=== PATIENT | male | born 1960 | race Caucasian/White ===

== ENCOUNTER 2019-05-13 17:05 | Emergency (ER) | payer BC, SELFPAY ==
[2019-05-13 17:22] VITALS: BP 124/82; PULSE 88; RESP 16; TEMP 37.1; O2SAT 95
--- NOTE | 2019-05-13 17:39 | ED.GENADUL_ITS ---
Discharge Plan Disposition Patient Disposition: HOME Condition: Good Discharge Details Chief Complaint: Vascular Clinical Impression: Left leg swelling Primary Care Provider: Pankaj Ortiz ED Provider: Adonis Nicole Home Meds and New Rx's Prescriptions: No Action cyclobenzaprine 5 MG tablet 5 - 10 mg PO TID PRNQty: 60 RF: 0 simvastatin 10 mg tablet 10 mg PO HS Qty: 90 RF: 4 Discharge Instructions Instructions: Leg Edema (ED) Additional Instructions: There is concern that you may have a blood clot. After we discussed the risks and benefits you decided to hold off on the blood thinner until the ultrasound tomorrow. Please use your Eric stockings at all times, keep your leg elevated above the level of your heart while at rest. Please use ice as needed on your leg. You will be contacted by ultrasound tomorrow for your appointment. Please come to the ER after for repeat assessment and decision about the results. Additionally your symptoms may be secondary to a muscle sprain, in which case the ERIC stockings, Tylenol Motrin and ice are still indicated. If you notice any worsening of your symptoms, or any new symptoms such as vomiting, diarrhea, fever, chills, shortness of breath, chest pain, numbness, weakness, or fainting , please return immediately to the emergency department for reevaluation. Please follow up with your primary care provider as soon as possible for reassessment and reevaluation. As always, it was a pleasure participating in your medical care today. Referrals: Pankaj Ortiz, DO [Primary Care Provider] - Discharge Data Discharge Date/Time-TO BE ENTERED AT DEPARTURE: 05/13/19 17:51 Medical Decision Making This is a pleasant 58-year-old male without any significant past medical history who presents today for swelling for his left lower extremity, the last 4 days he has noticed the symptoms, including left-sided calf tenderness. However he denies any injury, or any traumatic event. He states that over the last 24 to 48 hours the symptoms of actually notably improved. He still does still have some mild swelling of the distal tip/fib, trace pitting edema, minimal calf tenderness is still present, the remainder of his exam is neurovascularly intact. Brisk capillary refill, normal sensation. Signs and symptoms are most concerning for superficial phlebitis, mild muscle strain or ligamentous injury. However the differential certainly does include DVT. Patient is certainly in the low risk category, with no concerning red flags specific risk factors. He has no associated chest pain or shortness of breath, and in fact his symptoms have been improving. However DVT does remain on the differential. I do feel the patient would benefit from an ultrasound. Patient does agree with this, however no ultrasound is currently available. We will schedule an ultrasound for tomorrow morning. I discussed starting blood thinners, however the patient would like to hold off. We did discuss the risks and benefits of this, including lifelong disability or , and the patient understands this. He states that he will take a daily aspirin at home, but does not want any blood thinners until after his ultrasound. Patient will be scheduled for an ultrasound tomorrow morning. Discussed the importance of follow-up in the ED after ultrasonography. Currently there is no clinical evidence of significant cellulitis requiring antibiotics, significant ligamentous injury requiring surgical referral, or other acute bony fracture deformity. I have extensively reviewed the treatment plan and discharge instructions with the patient. I have addressed all patient concerns at this time. The patient was made aware of what symptoms to monitor for that would warrant a return to the emergency department. Discussed the plan with the patient, they demonstrate verbal understanding and agreement with our assessment and plan at this time. HPI General Date/Time Provider Initiated Documentation: 05/13/19 17:20 . HPI Narrative: This is a pleasant 58-year-old male with no significant past medical history who is relatively healthy who presents today for evaluation of left calf pain. Patient states that he has been performing his regular activities and denies any recent significant bed to her injury. States that 3 to 4 days ago he noticed some swelling around his distal martin, and at that time had mild to moderate calf tenderness, worse with dorsiflexion, improved with NSAIDs, elevation. Over the last 48 hours he has noticed a significant improvement in both the pain and the swelling however because of the continued mild pain he came to the ER for further assessment. He denies any history of blood clots or family history of blood clots. He denies any recent surgeries, long trips, or procedures. He denies any recent injuries, or ever hearing any pop. He does not take any blood thinners. He has no other complaints at this time. No other modifying factors. Related Data Home Medications Medication Instructions Recorded Confirmed cyclobenzaprine 5 - 10 mg PO TID PRN #60 tab-cap 12/13/17 08/06/18 simvastatin 10 mg tablet 10 mg PO HS #90 tab 01/06/19 Previous Rx's Medication Instructions Recorded simvastatin 10 mg tablet 10 mg PO HS #90 tab 01/06/19 Allergies Allergy/AdvReac Type Severity Reaction Status Date / Time No Known Allergies Allergy Verified 08/06/18 13:42 General Stated Complaint: Vascular PAULINA: 4 Review of Systems Review of Systems ROS Unobtainable: All systems reviewed & are unremarkable except as noted in HPI and below PFSH Surgical History (Updated 05/28/18 @ 14:33 by [employer] MD) Arthroplasty of knee (~1980) LEFT Family History Mother Essential hypertension Hyperlipidemia Father , AGE 87 Heart disease Hyperlipidemia Stroke Sister Bladder cancer Maternal Grandfather , AGE 62 Colon cancer Alcohol abuse Paternal Grandfather , AGE 77 Heart disease Myocardial infarction Alcohol abuse Maternal Grandmother , AGE 84 No problems noted. Paternal Grandmother , AGE 85 Diabetes Heart disease Hyperlipidemia Sister Depression Daughter Asthma Daughter No problems noted. Social History (Updated 08/07/18 @ 13:33 by Mariella Chaudhari) Smoking/Tobacco Use Status: Former Tobacco Use Quit Date: 05/12/18 Second Hand Exposure: Yes Alcohol Intake: current Alcohol Intake frequency: a few times a week Alcohol type: beer and wine Drug use: Daily Substance use type: marijuana Duration: 30-45 minutes/day Frequency: daily Zuleika/Baptism: Hinduism Special zuleika needs: No Do you feel safe at home: Yes Do you feel safe in your relationship?: Yes Exam Narrative Exam Narrative: 1.Const: Well-nourished, Well-developed, appearing stated age 2.Eyes: PERRL, no conjunctival injection, and symmetrical lids. 3.ENT: Atraumatic external nose and ears. Moist MM. Neck: Symmetric, trachea midline, No thyromegaly. 4.CVS: +S1/S2, No murmurs or gallops. Peripheral pulses 2+ and equal in all extremities. Brisk capillary refill in all extremities. 5.RESP: Unlabored respiratory effort. Clear to auscultation bilaterally. No wheezes rales or rhonchi 6.GI: Soft, Nontender/Nondistended, No hepatosplenomegaly. No guarding or rebound. 7.MSK: Normocephalic/Atraumatic, Extremities w/o deformity No cyanosis or clubbing, Normal movement of all extremities. Normal plantar and dorsiflexion. Mild swelling in the distal tip/fib, no significant erythema. No significant warmth. Minimal calf tenderness, worse with dorsiflexion. No evidence of ligamentous laxity. No posterior popliteal tenderness. 8.Skin: Warm, Dry. No rashes or lesions. 9.Neuro: superintendent power II-XII grossly intact. Sensation grossly intact, no focal neurologic deficits. 10.Psych: (AAO) x3. Appropriate mood and affect Course Vital Signs Vital signs: Vital Signs Temperature 37.1 C 05/13/19 17:22 Pulse 88 05/13/19 17:22 Respiratory Rate 16 05/13/19 17:22 Blood Pressure 124/82 05/13/19 17:22 Pulse Oximetry 95 05/13/19 17:22 Temperature 37.1 C 05/13/19 17:22 Temperature Source Temporal Artery Scan 05/13/19 17:22 Pulse 88 05/13/19 17:22 Respiratory Rate 16 05/13/19 17:22 Blood Pressure 124/82 05/13/19 17:22 Blood Pressure Position Standing 05/13/19 17:22 Pulse Oximetry 95 05/13/19 17:22 Oxygen Delivery Method Room Air 05/13/19 17:22 Oxygen Flow Rate 0 05/13/19 17:22
[2019-05-13 17:55] VITALS: RESP 16
== END 2019-05-13 17:51 | disposition home or self-care (01) ==
PROVIDERS: Emergency Provider Student in an Organized Health Care Education/Training Program; PCP Emergency Medicine
DX: R22.42 Localized swelling, mass and lump, left lower limb (principal); Z79.01 Long term (current) use of anticoagulants
CPT/HCPCS: 99283

== ENCOUNTER 2019-05-14 07:24 | Outpatient (CLI) | payer BC, SELFPAY ==
--- NOTE | 2019-05-14 08:15 | DI.US_ITS ---
EXAM: US LOWER EXTREMITY VENOUS LT CLINICAL HISTORY: SWELLING, ? DVT. TECHNIQUE: Ultrasound performed using standard protocol. COMPARISON: No exams were available for comparison FINDINGS: Duplex venous ultrasound was performed according to the usual protocol. No evidence of deep venous t hrombosis. Deep veins are freely compressible throughout. IMPRESSION:
== END 2019-05-14 07:44 ==
PROVIDERS: PCP Emergency Medicine; Visit Provider Student in an Organized Health Care Education/Training Program
DX: M79.605 Pain in left leg (principal); R22.42 Localized swelling, mass and lump, left lower limb
CPT/HCPCS: 93971

== ENCOUNTER 2019-05-14 08:50 | Emergency (ER) | payer BC, SELFPAY ==
[2019-05-14 08:52] VITALS: BP 166/91; PULSE 81; RESP 16; TEMP 36.1; O2SAT 98
--- NOTE | 2019-05-14 09:03 | ED.GENADUL_ITS ---
Discharge Plan Disposition Patient Disposition: HOME Condition: Improving Discharge Details Chief Complaint: Recheck Clinical Impression: Gastrocnemius strain, left Primary Care Provider: Pankaj Ortiz ED Provider: Farrukh Mcdaniel Home Meds and New Rx's Prescriptions: Continued cyclobenzaprine 5 MG tablet 5 - 10 mg PO TID PRNQty: 60 RF: 0 simvastatin 10 mg tablet 10 mg PO HS Qty: 90 RF: 4 Discharge Instructions Additional Instructions: Continue routine and activities. Return for any acute concern. Medical Decision Making 58-year-old male seen in the emergency department yesterday for calf strain. Referred back this morning for outpatient ultrasound which is negative for finding. He now relates that he had discomfort began after lifting 400 pound tractor tire and the bed of his truck twice 3 days ago. It is improving. He has no other complaints or significant findings. Stable for discharge to home. HPI General Mode of arrival: ambulatory . Date/Time Provider Initiated Documentation: 05/14/19 08:51 . Limitations to Documentation: no limitations . Information obtained by: patient . History of Present Illness 58 year old M presents to the emergency department with the chief complaint of Left calf strain, described as moderate, Quality is described as dull, and is localized to the left and lower extremity. Patient reports no radiation. Patient started experiencing this day(s) and it has been now resolved. No relieving factors improve symptom(s), No exacerbating factors reported . Patient notes denies cough, shortness of breath and syncope. Patient did receive the following treatments prior to arrival, none Related Data Home Medications Medication Instructions Recorded Confirmed cyclobenzaprine 5 - 10 mg PO TID PRN #60 tab-cap 12/13/17 08/06/18 simvastatin 10 mg tablet 10 mg PO HS #90 tab 01/06/19 Previous Rx's Medication Instructions Recorded simvastatin 10 mg tablet 10 mg PO HS #90 tab 01/06/19 Allergies Allergy/AdvReac Type Severity Reaction Status Date / Time No Known Allergies Allergy Verified 08/06/18 13:42 General Stated Complaint: Recheck PAULINA: 5 Review of Systems Review of Systems Narrative: Denies cough or shortness of breath. Otherwise well. Leg is improving. [facility] Surgical History (Updated 05/28/18 @ 14:33 by [employer] OR) Arthroplasty of knee (~1980) LEFT Family History Mother Essential hypertension Hyperlipidemia Father , AGE 87 Heart disease Hyperlipidemia Stroke Sister Bladder cancer Maternal Grandfather , AGE 62 Colon cancer Alcohol abuse Paternal Grandfather , AGE 77 Heart disease Myocardial infarction Alcohol abuse Maternal Grandmother , AGE 84 No problems noted. Paternal Grandmother , AGE 85 Diabetes Heart disease Hyperlipidemia Sister Depression Daughter Asthma Daughter No problems noted. Social History (Updated 08/07/18 @ 13:33 by Mariella Chaudhari) Smoking/Tobacco Use Status: Former Tobacco Use Quit Date: 05/12/18 Second Hand Exposure: Yes Alcohol Intake: current Alcohol Intake frequency: a few times a week Alcohol type: beer and wine Drug use: Occasionally Substance use type: marijuana Duration: 30-45 minutes/day Frequency: daily Zuleika/Spiritism: Yarsanism Special zuleika needs: No Do you feel safe at home: Yes Do you feel safe in your relationship?: Yes Exam Narrative Exam Narrative: GEN: awake, alert, oriented 3. Pleasant, well groomed, interactive. HEAD: Normocephalic, atraumatic EXT: Bilateral full ROM, no edema, tenderness, cords appreciated on the left lower extremity. Medial gastroc intact. Neuro: Grossly normal neurologic exam, conversant, interactive. Psych: Speech fluent, thoughts congruent, affect normal Course Vital Signs Vital signs: Vital Signs Temperature 36.1 C L 05/14/19 08:52 Pulse 81 05/14/19 08:52 Respiratory Rate 16 05/14/19 08:52 Blood Pressure 166/91 H 05/14/19 08:52 Pulse Oximetry 98 05/14/19 08:52 Temperature 36.1 C L 05/14/19 08:52 Temperature Source Skin 05/14/19 08:52 Pulse 81 05/14/19 08:52 Respiratory Rate 16 05/14/19 08:52 Respiratory Effort Non-Labored 05/14/19 08:54 Blood Pressure 166/91 H 05/14/19 08:52 Blood Pressure Position Sitting 05/14/19 08:52 Pulse Oximetry 98 05/14/19 08:52 Oxygen Delivery Method Room Air 05/14/19 08:52 Oxygen Flow Rate 0 05/14/19 08:52
[2019-05-14 09:08] VITALS: BP 166/91; PULSE 81; RESP 16; TEMP 36.1; O2SAT 98
== END 2019-05-14 09:09 | disposition home or self-care (01) ==
PROVIDERS: Emergency Provider Emergency Medicine; PCP Emergency Medicine
DX: S86.812A Strain of other muscle(s) and tendon(s) at lower leg level, left leg, initial encounter (principal); X50.1XXA Overexertion from prolonged static or awkward postures, initial encounter
CPT/HCPCS: 99282

== ENCOUNTER 2019-08-11 07:00 | Outpatient (CLI) | payer BC, SELFPAY ==
[2019-08-11 10:45] LABS: Cholesterol 193 mg/dL (<200); HDL Cholesterol 29 mg/dL (40-60); Triglyceride 493 mg/dL (<150)
[2019-08-11 11:21] LABS: LDL CHOLESTEROL 82 mg/dL (<100)
[2019-08-12 12:35] LABS: PSA, Screening 1.1 ng/mL (0.0-3.5)
== END 2019-08-11 07:20 ==
PROVIDERS: PCP Emergency Medicine; Visit Provider Emergency Medicine
DX: Z00.00 Encounter for general adult medical examination without abnormal findings (principal); Z13.220 Encounter for screening for lipoid disorders; Z12.5 Encounter for screening for malignant neoplasm of prostate
CPT/HCPCS: 36415; 80061; 83721; 84153

== ENCOUNTER 2019-09-10 11:51 | Outpatient (CLI) | payer BC, SELFPAY ==
--- NOTE | 2019-09-10 11:50 | DI.RAD_ITS ---
EXAM: XR HIP RT AP LAT ONLY CLINICAL HISTORY: eval R hip pain TECHNIQUE: COMPARISON: No exams were available for comparison FINDINGS: Two views were obtained. There is moderate narrowing of the cartilaginous joint space of the right h ip superiorly. Moderate acetabular and femoral head osteophyte formation noted. Mild subchondral sc lerosis of the acetabulum noted. IMPRESSION: Moderate DJD right hip.
--- NOTE | 2019-09-10 11:50 | DI.RAD_ITS ---
EXAM: XR KNEE RT 3V AP,LAT,FILIPPO CLINICAL HISTORY: eval R knee pain TECHNIQUE: COMPARISON: XR KNEE LT 4V AP,LAT,FILIPPO,PAT from 09/10/2019 FINDINGS: Three views were obtained. There may be slight narrowing of the lateral tibiofemoral cartilaginous j oint space, presumably on a degenerative basis. No focal bony abnormality seen. IMPRESSION:
--- NOTE | 2019-09-10 11:50 | DI.RAD_ITS ---
EXAM: XR KNEE LT 4V AP,LAT,FILIPPO,PAT CLINICAL HISTORY: eval L knee pain, h/o surgery in 80s TECHNIQUE: COMPARISON: No exams were available for comparison FINDINGS: Four views were obtained. There is marked narrowing of the medial tibiofemoral cartilaginous joint s pace with mild varus angulation of the knee. There are very prominent hypertrophic changes involving all joints of the knee. There is subchondral sclerosis and mild remodeling of the medial femoral co ndyle and medial tibial plateau. Old ACL reconstruction noted. IMPRESSION: Severe DJD most marked involving medial tibiofemoral joint.
== END 2019-09-10 12:11 ==
PROVIDERS: PCP Emergency Medicine; Visit Provider Student in an Organized Health Care Education/Training Program
DX: M25.561 Pain in right knee (principal); M25.562 Pain in left knee; M17.0 Bilateral primary osteoarthritis of knee; M25.551 Pain in right hip; M16.11 Unilateral primary osteoarthritis, right hip
CPT/HCPCS: 73562; 73502; 73564

== ENCOUNTER 2019-09-30 07:51 | Outpatient (CLI) | payer BC, SELFPAY ==
[2019-09-30 09:02] LABS: HGB 15.7 g/dL (13.5-17.5); Mean Corp. HGB Concentration 33.4 g/dL (32.0-36.0); Mean Corpuscular Hemoglobin 30.1 pg (27.0-33.0); Mean Platelet Volume 10.2 fL (8.0-11.0); Platelet Count 241 x1000/uL (130-400); RBC 5.22 m/cumm (4.50-6.00); RBC Distribution Width 13.2 % (11.8-14.1); White Blood Cell Count 7.78 k/cumm (4.4-10.8)
[2019-09-30 10:11] LABS: Anion Gap 9.7 mmol/L (3-11); BUN 10 mg/dL (7-18); CO2 27.3 mmol/L (21.0-32.0); CREATININE 0.82 mg/dL (0.70-1.30); Chloride 104 mmol/L (98-107); Glucose 90 mg/dL (74-106); Potassium 4.4 mmol/L (3.5-5.1); Sodium 141 mmol/L (136-145)
== END 2019-09-30 08:11 ==
PROVIDERS: PCP Emergency Medicine; Visit Provider Student in an Organized Health Care Education/Training Program
DX: M25.562 Pain in left knee (principal); M17.32 Unilateral post-traumatic osteoarthritis, left knee; Z01.818 Encounter for other preprocedural examination; Z01.812 Encounter for preprocedural laboratory examination
CPT/HCPCS: 36415; 80048; 85027

== ENCOUNTER 2019-09-30 10:06 | Outpatient (CLI) | payer BC, SELFPAY ==
--- NOTE | 2019-09-30 09:18 | DI.RAD_ITS ---
EXAM: XR STANDING ALIGNMENT INDICATION: TKA planning. COMPARISON: No exams were available for comparison TECHNIQUE: 2D digital imaging was performed. FINDINGS: There are mild degenerative changes seen in the right hip. The right knee is fairly well maintained. There are moderately severe degenerative changes seen in the left knee characterized by joint space narrowing and periarticular spurring. The right lower extremity measures 82.5 cm. The left lower e xtremity measures 81.8 cm.
== END 2019-09-30 10:26 ==
PROVIDERS: PCP Emergency Medicine; Visit Provider Physician Assistant
DX: M16.11 Unilateral primary osteoarthritis, right hip (principal); M17.12 Unilateral primary osteoarthritis, left knee
CPT/HCPCS: 77073

== ENCOUNTER 2019-10-06 08:50 | Observation (INO) | payer BC, SELFPAY ==
[2019-09-30 08:06] VITALS: BP 123/78; PULSE 73; RESP 18; TEMP 37.2; O2SAT 96
[2019-10-06] VITALS (14 sets, daily range): BP systolic 92–138; BP diastolic 72–97; PULSE 53–68; RESP 10–18; TEMP 36.2–37.4; O2SAT 95–100
[2019-10-06] MEDS: Celecoxib 200 MG CAP 400 MG PO (09:46)
[2019-10-06] MEDS: Gabapentin 300 MG CAP PO (09:47)
[2019-10-06] MEDS: Acetaminophen 500 MG TAB 1000 MG PO ×2 (09:47→19:36)
[2019-10-06] MEDS: Lactated Ringers 1,000 ML 80 ML IV (10:09)
[2019-10-06] MEDS: ceFAZolin 2 GM/50 ML BAG IVPB (11:23)
[2019-10-06] MEDS: Bupivacaine 0.25% Pres-Free 30 ML VIAL (13:05)
[2019-10-06] MEDS: Ketorolac 30 MG/ML VIAL (13:05)
[2019-10-06] MEDS: Normal Saline 20 ML VIAL (13:05)
--- NOTE | 2019-10-06 16:32 | PT.INIE ---
Date of service: 10/06/19 Time of Service: 16:05 PT Notes Physical Therapy Inpatient Initial Evaluation Date: 10/07/2019 Referring Doctor: Sumanth Ledesma M.D. PT Orders: PT CONSULT: s/p ortho surgery Precautions: Fall. Standard. Activity as tolerated. Patient Profile/Admitting Diagnosis: Pt is 59-year-old male status post left total knee arthroplasty on post-operative day 0 due to post traumatic osteoarthritis. PMHX: Medical History (Updated 09/30/19 @ 08:11 by Lona Rosales RN) Hepatitis A (Acute) 2001 - Food poisoning from a restaurant Hyperlipidemia (Acute) Seborrheic keratoses (Acute) 02/07/16-LEFT TEMPORAL REGION Smoker (Inactive 06/23/13) Quit 08/2019 Surgical History (Updated 09/30/19 @ 08:11 by Lona Rosales RN) Hx of colonoscopy (Chronic) S/P reconstruction of ligament of knee joint (Inactive) 1980s Social History/Home Situation: Pt lives with his mother in [place]. No stairs to enter the home. A flight of stairs to the second floor where his bed room is, but notes that there is a chair lift. Equipment Owned/DME: four wheeled walker. Chair lift. Raised toilet seat. Crutches. Subjective: Pt states that he feels great and is only having numbness in his buttocks and the back of his legs. He reports that he feels like he could just get up out of bed and walk without any help. Objective: General Observation: Mepilex dressing over incision with JEFF bandage. Thromboembolic pumps on right LE. Hayward catheter in place. Mental Status: alert and oriented Pain: 1/10 ROM: Right Upper Extremity: Shoulder Flexion WFL. Shoulder abduction WFL. Elbow flexion WFL. Wrist flexion WFL. Opening and closing of hand WFL. Left Upper Extremity: Shoulder Flexion WFL. Shoulder abduction WFL. Elbow flexion WFL. Wrist flexion WFL. Opening and closing of hand WFL. Right Lower Extremity: Hip flexion WFL. Hip abduction WFL. Knee flexion WFL. Ankle dorsiflexion WFL. Ankle plantarflexion WFL. Left Lower Extremity: Hip flexion WFL. Hip abduction WFL. Knee flexion 115 degrees. Knee extension -10 degrees. Ankle dorsiflexion WFL. Ankle plantarflexion WFL. Strength: Right Upper Extremity: Shoulder flexors 5/5. Shoulder abductors 5/5. Elbow flexors 5/5. Elbow extensors 5/5. 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 Left Upper Extremity: Shoulder flexors 5/5. Shoulder abductors 5/5. Elbow flexors 5/5. Elbow extensors 5/5. 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 Right Lower Extremity: Hip flexors 5/5. Hip abductors 5/5. Knee flexors 5/5. Knee extensors 5/5. Ankle dorsiflexors 5/5. Ankle plantarflexors 5/5. Left Lower Extremity: Hip flexors 4+/5. Hip abductors 5/5. Knee flexors 3-/5. Knee extensors 3-/5. Ankle dorsiflexors 5/5. Ankle plantarflexors 5/5. Sensation: Intact as to pain and pressure on bilateral lower extremities. Bed Mobility/Transfers: Rolling SBA Supine to sit SBA Sit to supine SBA Sit to stand CGA Stand to sit CGA Bed to chair CGA Chair to bed CGA Gait: Pt was able to ambulate 40 feet + 200 feet + 40 feet, WBAT on the L LE, using a front wheeled walker. Reciprocal, step through gait pattern. Does not complain of knee pain, but notes that he can ?feel it? in the L knee. One episode of L knee almost buckling at the end of the walk. Balance: Static Sitting: Normal Dynamic Sitting: Normal Static Standing: Fair Dynamic Standing: Fair Special Tests: Mobility Limitations Standardized Measure [facility] AM-PAC 6 clicks Basic Mobility Inpatient Short Form: Raw Score: 23 CMS Score: 11% deficit Informed Consent/Education: Patient instructed in purpose of PT consult and plan of care. Assessment: Pt is 59-year-old male status post left total knee arthroplasty on post-operative day 0 due to post traumatic osteoarthritis. Pt presents with impairment level findings and functional limitations as listed below. He demonstrates good tolerance with walking as demonstrated by ambulating a longer distance without requiring a rest break or complaining of increased knee pain. Demonstrates good bed mobility and transfers without difficulty. He would continue to benefit from skilled physical therapy at this time to assess mobility on stairs. Patient presents with clinical signs and symptoms consistent with current/admitting diagnoses that have resulted to mobility limitations, gait instability, and generalized weakness as demonstrated by the following impairment level findings: 1. Decreased strength to L knee major muscle groups 2. Impaired standing balance 3. Impaired activity tolerance 4. Limitation of joint range of motion in left knee Impairments are contributing to the following functional limitations: 1. Dependent bed mobility skills 2. Increased dependence with transfers 3. Inability to safely ambulate without assistive device and physical assistance 4. Increase completion time for mobility ADL performance 5. Increased fall risk 6. Inability to negotiate steps alone safely Patient is assessed as a 00253 moderate complexity based on the following: History: Pt presents with impairment level findings and functional limitations as listed below. AM-PAC raw score of 23 with 11% deficit. Examination: Demonstrable impairment in strength, balance, and range of motion with underlying impairments and functional limitations as documented above Presentation: Evolving Decision Makin moderate complexity Goals: Goals X1 week 1. Supine-Sit independent 2. Sit-Supine independent 3. Sit-Stand independent 4. Stand-Sit independent 5. Bed-Chair independent 6. Chair-Bed independent 7. Independent gait on level surface with use of least restrictive device for at least 300 feet without report of pain nor dyspnea 8. Independent stair negotiation while holding onto bilateral rails for at least 10 steps without report of pain nor dyspnea 9. Independent with home exercise program 10. Good static and dynamic standing balance/tolerance Plan of Care/Treatment Plan: 1-2x/day, 7 days/week x 1 week. Plan of care has been reviewed with the [employer] providing the service under Physical Therapy direction. Initiate Physical Therapy intervention for strengthening, bed mobility, transfers, gait, stairs, balance training, use of assistive device. DISCHARGE RECOMMENDATIONS: Discharge to home when medically cleared. Recommend a front wheeled walker for safe ambulation. TREATMENT CODE/TIME: 22573 x 25 minutes beginning at 15:05 P.M. Thank you very much for this referral. Sydnee Flynn, SPT Doctor of Physical Therapy Student [facility] Supervision provided by Carolina Rosenthal PT, DPT, CLT [facility] [place], [place]
[2019-10-06] MEDS: ceFAZolin 1 GM/50 ML BAG IVPB (17:38)
[2019-10-06] MEDS: oxyCODONE 5 MG TAB PO (17:39)
--- NOTE | 2019-10-06 19:02 | W.PM.DS.N ---
Date of service: 10/06/19 Time of Service: 19:02 DS: Diagnosis Discharge Diagnosis (1) Post-traumatic osteoarthritis of left knee: Status: Acute Discharge Plan Disposition Patient Disposition: HOME Condition: Good Discharge Details Reason For Visit: LEFT KNEE DJD Admit Date/Time: 10/06/19 08:50 Admit Provider: Sumanth Ledesma Attending Provider: Sumanth Ledesma Primary Care Provider: Pankaj Ortiz Hospital Course Hospital Course: Patient was admitted to the medical/surgical floor following the procedure. It was tolerated well without any notable medical, surgical, or anesthetic complications. Mobilization began postoperatively. The mahoney catheter was removed and voiding spontaneously. Vitals were stable. Physical therapy worked with the patient and was cleared for discharge home. No acute medical issues. Home Meds and New Rx's Prescriptions: New aspirin 81 mg tablet,delayed release (DR/EC) 81 mg PO BID Qty: 60 RF: 0 acetaminophen 500 mg tablet 1,000 mg PO Q8H PRN (Reason: pain) Qty: 90 RF: 3 gabapentin 300 mg capsule 300 mg PO QHS Qty: 7 RF: 0 ibuprofen 600 mg tablet 600 mg PO TID PRNQty: 90 RF: 3 oxycodone 5 mg tablet 5 mg PO Q4H Qty: 18 RF: 0 Continued simvastatin 10 mg tablet 10 mg PO HS Qty: 90 RF: 4 Discharge Instructions Additional Instructions: Dr. Ledesma?s Total Knee Discharge Instructions Activity: The most important activity is to walk. You should try to take short walks a few times a day. It is important that when resting you work on keeping the knee straight. Avoid putting a pillow behind the knee as this will encourage flexion. Work on range of motion exercises as provided by Physical Therapy. - Start outpatient physical therapy within 2 weeks. - You should wear the ERIC hose on both legs for 2 weeks. Dressing: Keep the surgical dressing in place for at least one week. After the first week it may be removed and replace with light gauze and tape or nothing. It may get wet after 3 days but avoid soaking the dressing. If it gets wet, just lightly pat dry. Medications: - You should take Tylenol and anti-inflammatory Ibuprofen as your primary pain control medications - You have been prescribed a stronger pain medication Oxycodone for breakthrough pain, take as needed as prescribed. - You have also been prescribed a stomach acid reduction agent Pantoprozole to help reduce stomach acid and reflux. - You have been prescribed Gabapentin to help with nightime nerve pain and sleep - You will be taking Aspirin 81mg twice a day for DVT prevention unless instructed otherwise. - If you have constipation you should take Colace or Miralax (both [id number]). It takes most people 3-4 days to have a bowel movement. Follow-up: 2 weeks Referrals: [facility] [Provider Group] (s/p L TKA. Start PT within 2 weeks.) Sumanth Ledesma MD [ [facility]] - Activity:: Activity as Tolerated Equipment/Supplies:: Walker Diet:: As Tolerated Discharge Orders Discharge Orders: Discharge Order (Routine); Ordered 10/06/19 Ordered By: Sumanth Ledesma DS: Summary Status at Discharge Functional status at discharge: uses cane/walker Overall status at discharge: patient is progressing back to baseline Mental Status: mental status grossly normal Speech and Movement: speech and movement normal Mood: congruent mood Affect: normal affect Exam Psych Mental Status: mental status grossly normal Speech and Movement: speech and movement normal Mood: congruent mood Affect: normal affect DS: Data Vitals/I&O Vitals and I&O: Vital Signs Temperature 36.3 C L 10/06/19 15:50 Temperature Source Tympanic 10/06/19 15:50 Pulse 61 10/06/19 15:50 Pulse Rhythm Regular 10/06/19 16:30 Respiratory Rate 18 10/06/19 15:50 Respiratory Effort 10/06/19 16:30 Respiratory Depth Normal 10/06/19 16:30 Respiratory Pattern Normal 10/06/19 16:30 Blood Pressure 132/81 10/06/19 15:50 Blood Pressure Mean 78 10/06/19 15:19 Blood Pressure Position Supine 10/06/19 15:19 Pulse Oximetry 99 10/06/19 15:50 Respiratory End-tidal CO2 33 10/06/19 14:20 Oxygen Delivery Method Room Air 10/06/19 15:50 Oxygen Flow Rate 0 10/06/19 15:50 Pain Level 4 10/06/19 17:39 Comment 10/06/19 15:19 Intake & Output 10/05/19 10/06/19 10/06/19 23:59 11:59 23:59 Intake Total 110 / 460 350 / 460 Output Total 800 / 800 Balance 110 / -340 -450 / -340 Weight 82.7 kg 82.7 kg Intake: IV 110 / 110 Oral 350 / 350 Output: Urine 600 / 600 Estimated Blood Loss 200 / 200 Other: Urine Color Yellow Yellow Urine Appearance Clear Clear Emesis Description None PFSH Social History (Updated 09/30/19 @ 10:00 by MEAGHAN Ma) Smoking/Tobacco Use Status: Former Tobacco Use Quit Date: 08/26/19 Tobacco: How many years used: 40 Quit status: has quit before Second Hand Exposure: Yes Smoking risk assessment performed?: Yes Alcohol Intake: current Alcohol Intake frequency: a few times a week Alcohol type: beer and wine Drug use: Rarely Substance use type: marijuana Caregiver/Support person: No Household members: family Housing: house Communication Needs: None Do you need help understanding health information?: Never Pets and animals: Yes Pets and animals: cat(s), dog(s) and farm animals Sexually active: No Do you think of yourself as: straight/heterosexual Current gender identity: male What is your relationship status?: How often do you talk on the phone with friends or family?: three or more times per week How often do you get together with friends or relatives?: three or more times per week How often do you attend zoroastrianism or orthodox services?: 1-3 times per year Do you belong to any clubs or organized social groups?: no Panel score (0-1 are the most socially isolated patients): 1 What type of physical activity do you participate in: bicycling 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
[2019-10-06] MEDS: Aspirin E.C. 81 MG TABEC PO (19:36)
[2019-10-06] MEDS: Celecoxib 200 MG CAP PO (19:36)
--- NOTE | 2019-10-07 07:52 | ROE_ITS ---
Date of service: 10/06/19 Time of Service: 13:52 Operative Note Operative Note DATE OF PROCEDURE: 10/06/19 PRE-OP DIAGNOSIS: Left Knee Post-Traumatic Arthritis POST-OP DIAGNOSIS: same PROCEDURE: Left Total Knee Replacement SURGEON: Sumanth Ledesma DRYING MACHINE RECEIVER: Shanel Gill ANESTHESIA: regional and spinal ESTIMATED BLOOD LOSS: 200 PATHOLOGY: none sent TOURNIQUET TIME: 0 COMPLICATIONS: None Patient was transported to: PACU Patient's condition: stable Implants: 1. Depuy Attune Cementless CR Femoral Component, Size 6 2. Depuy Attune Cementless Rotating Platform Tibial Component, Size 5 3. Depuy Attune 6x10 CR/RP Poly 4. Depuy Attune Patellar Component, Size 35mm Indications: I have seen Kwame in clinic for symptoms of left knee arthritis, confirmed with radiographic findings. Kwame has exhausted nonoperative methods and was having significant limitations in daily function and desired better function and less pain. I discussed the technical details of a knee replacement. I explained the risks of the procedure to include, but not limited to, bleeding, infection, pain, stiffness, fracture, damage to nerves and vessels, damage to muscles and tendons, loosening, need for repeat procedure, blood clot and cardiopulmonary demise. Despite these risks, he elected to proceed. Findings: There was significant signs of arthritis throughout the knee. MCL and LCL were intact and the medial complex was tight. ACL was not present and there was some residual PCL. Procedure Description: Kwame was greeted in the preoperative holding area where the correct side was identified and marked. The consent was reviewed with the patient and signed. The history and physical was updated. All questions were answered. Preoperative mediacations were administered: Acetaminophen 1000mg, Celebrex 400mg, and Gabapentin 300mg. An adductor canal block was then administered by the anesthesia team in the PACU. He was taken back to the operating room. A spinal anesthestic was then administered. The patient was placed into the supine position on the operating room table. A nonsterile tourniquet was placed high onto the leg but not used. Posts were placed for positioning during the procedure. All bony prominences were well padded. Prophylactic antibiotics in the form of Cefazolin were administered. 1g of Tranxemic Acid was given intravenously within 30 minutes of incision. The left leg was then prepped with Chloraprep and draped in a standard fashion with impervious stockinette and extremity drape. A second prep with Chloraprep was performed prior to placing Ioband. A timeout to confirm correct identity, side and site, procedure, allergies, anesthesia, and medical concerns was performed. With the knee in some flexion, a midline incision was made overlying the knee. Full thickness skin flaps were raised once the extensor mechanism was encountered. These were raised medially and laterally. Any bleeding was controlled with electrocautery. Once the extensor mechanism was fully exposed, a medial parapatellar arthrotomy was performed in a flexed position. All bleeding from the arthrotomy and the geniculate arteries was coagulated. A medial subperiosteal peel was performed with electrocautery to the midcoronal plane. Due to the significant varus deformity the entire medial tibial plateau was exposed. The fat pad was removed while keeping the patellar tendon protected. The anterior distal femur synovium was removed for later visualization. The ACL and PCL were resected and the anterior horn of the lateral meniscus was transected. The knee was then flexed with the patella everted. Large osteophytes from the tibia were removed. Large osteophytes from the femur were removed. The medial soft tissues were released around to the posterior-medial knee due to the varus contracture. Using a step drill, and based on preoperative templating, the femoral canal was entered. This was done with a step drill without any difficulty. The i ntramedullary distal femoral cut guide was inserted, set to a 5 degree valgus cut and 9mm cut thickness. The distal femoral cut guide was then held in position and pinned. With the soft tissues protected, the distal cut was performed. This was passed over a few times to ensure a planar cut. I then turned attention to the tibia. The extramedullary guide was placed onto the leg. The distal aspect was slid medial to adjust for position of center of ankle and stay in line with shaft of the tibia. Approximately 3-5 degrees of posterior slope was kept in the proximal cutting guide. The center of the guide was aligned with the PCL. The stylus was used to assess cut thickness. The medial side, most involved side, was set for a 2mm cut which corresponded to 9mm on the lateral side. This was then held in position and pinned into place with 2 additional pins and a cross pin for stability. The medial and lateral collateral ligaments were protected and the cut was performed. With this completed, it was assessed and noted to be of appropriate dimensions. The guide was removed. A spacer block was inserted and the knee was brought into extension. The 7mm spacer block provided full extension, without hyperextension and with stability of both the medial and lateral collateral ligaments was assessed. The pins from the femur and the tibia were then removed. The distal femur was then sized. The anterior stylus was placed onto the lateral ridge of the anterior femur. This indicated a size 6 femur. The external rotation of the guide was adjusted to 3 degrees to match the ep icondylar axis, perpendicular to [place]?s line. The 4-in-1 cutting guide was the placed. The posterior medial femur cut was evaluated and appeared of good thickness. The spacer block was inserted underneath the cutting guide and stability was confirmed in 90 degrees of flexion. An sunitha wing was used to confirm appropriate position of the anterior cut to avoid notching. This cutting guide was ensured to be flush on the cut surface and then pinned into place with headed pins. While protecting the soft tissues, quad tendon, and collateral ligaments, the anterior and posterior cuts were performed with a saw. The central two pins were removed and the posterior and anterior chamfers were cut next. The notch-cutting guide was placed. This was pinned to lateralize the femoral component as much as possible while keeping it flush on the cut surface. This was then pinned into position. A reciprocating saw was used to make the notch cut. A rasp smoothed the cut surfaces. There were notable large posterior osteophytes which were resected with a curved osteotome. The posterior capsular tissue, which was notably contracted medially, was resected and elevated off of the posterior femur using a curved osteotome. A trial CR femoral component was then inserted, impacted down to the cut surfaces, and the lug holes were drilled. A provisional trial tibial component was placed and the knee was brought through range of motion. There was some increase in medial lateral laxity in extension as well as in flexion. Therefore, a polyethylene was trialed up to size 10 mm. This provided complete stability in extension, achieve 0 degrees of extension, and also had less than 2 mm of plantarflexion. The patella was tracking without thumbs. The tibial cut surface was fully exposed. The medial and lateral menisci were removed. The tibia was then sized as a 5. The tibia had been previously marked during trialing to correspond to the center of the tibial component to help with rotation. The trial was aligned to this yola, approximately rotated to the medial 1/3rd of the tibial tubercle. The trial was pinned into place. The tibia was prepared with a reamer and a keel punch and lug holes. The knee was then brought into extension and the patella was measured as 30mm. Using the patellar clamp and cut guide, this was resected to a flat surface with at least 13mm of thickness remaining. The size 35mm patella fit the best. This was oriented and then clamped into position. The lugs were drilled. The trial components were removed. The final components, except for the polyethylene were opened on the back table. The periosteal and capsular tissues, especially posteriorly, around the knee were then systematically injected with a periarticular cocktail consisting of 50cc 0.25% Marcaine, 30mg Ketorolac, 20cc of Exparal and 50cc of injectable saline. The knee was thoroughly irrigated with a pulse lavage and dried. One batch of high viscosity cement was prepared on the back table. This was used for securing the patellar component. The cement was manually packed into the cut surfaces of the dry patella. The patella component was lined to the lug holes and compressed into place. It was held with a clamp for 15 minutes and excess cement was removed. While the cement was curing of the patella, the cementless components were inserted. The tibial component was inserted first. It was ensured that the lug holes were lined up appropriately and any soft tissue was not interposed between the tibial component and the tibia. This was manually impacted with excellent approximation of the tibial component on the bone. Attention was then turned to the femur. Similarly, the femoral component was lined up with the lug holes and impacted with light mallet blows. He was able to be seated all the way without notable fracture or concern of complication. After the cement had finally cured, approximately 15min, the clamp was removed from the patella and the knee was taken through range of motion. A size 10mm polyethylene component provided the best range of motion and stability with less than 2mm gapping with medial and lateral stress and full extension without significant hyperextension. The patella was tracking with a no-thumbs technique. The knee was irrigated with Irrrisept chlorhexidine solution. The poly component was then inserted after cleaning and drying the tibial tray. The capsule was then reapproximated with a No. 1 Vicryl at multiple locations. The capsule was finally closed with a No. 2 Stratafix, barbed suture. The tourniquet was then released and the arthrotomy appeared watertight without significant bleeding. The second dosing of 1g TXA was started. Deep tissues were then reapproximated with 0 Vicryl and 2-0 Vicryl. The skin was closed with a running 3-0 Monocryl in a subcuticular fashion. This was reinforced with skin glue. A Mepilex silver dressing was applied along with a [id number] JEFF wr ap. A CryoCuff was applied. He was transferred to the hospital bed without difficulty an suffering no apparent complication. Kwame has a good prognosis. Physical therapy will start today and without restrictions, weight-bearing as tolerated. Aspirin 81mg BID will be used for DVT prophylaxis.
--- NOTE | 2019-10-07 16:26 | PT.INDS ---
Date of service: 10/07/19 Time of Service: 16:27 PT Notes Visit Reasons: LEFT KNEE DJD Physical Therapy Inpatient Discharge Summary Date: 10/07/2019 Dates of Service: 10/06/2019 This is a clinical summary of care provided on the duration of dates listed above. No charge was made in the completion of this documentation. Patient Profile/Admitting Diagnosis: Pt is 59-year-old male status post left total knee arthroplasty on post-operative day 0 due to post traumatic arthritis. Objective: General Observation: Mepilex dressing over incision with JEFF bandage. Thromboembolic pumps on right LE. Hayward catheter in place. Mental Status: alert and oriented Pain: 1/10 ROM: Right Upper Extremity: Shoulder Flexion WFL. Shoulder abduction WFL. Elbow flexion WFL. Wrist flexion WFL. Opening and closing of hand WFL. Left Upper Extremity: Shoulder Flexion WFL. Shoulder abduction WFL. Elbow flexion WFL. Wrist flexion WFL. Opening and closing of hand WFL. Right Lower Extremity: Hip flexion WFL. Hip abduction WFL. Knee flexion WFL. Ankle dorsiflexion WFL. Ankle plantarflexion WFL. Left Lower Extremity: Hip flexion WFL. Hip abduction WFL. Knee flexion 115 degrees. Knee extension -10 degrees. Ankle dorsiflexion WFL. Ankle plantarflexion WFL. Strength: Right Upper Extremity: Shoulder flexors 5/5. Shoulder abductors 5/5. Elbow flexors 5/5. Elbow extensors 5/5. Licensed Investment Sales Assistant strong. Left Upper Extremity: Shoulder flexors 5/5. Shoulder abductors 5/5. Elbow flexors 5/5. Elbow extensors 5/5. Licensed Investment Sales Assistant strong. Right Lower Extremity: Hip flexors 5/5. Hip abductors 5/5. Knee flexors 5/5. Knee extensors 5/5. Ankle dorsiflexors 5/5. Ankle plantarflexors 5/5. Left Lower Extremity: Hip flexors 4+/5. Hip abductors 5/5. Knee flexors 3-/5. Knee extensors 3-/5. Ankle dorsiflexors 5/5. Ankle plantarflexors 5/5. Sensation: Intact as to pain and pressure on bilateral lower extremities. Bed Mobility/Transfers: Rolling SBA Supine to sit SBA Sit to supine SBA Sit to stand CGA Stand to sit CGA Bed to chair CGA Chair to bed CGA Gait: Pt was able to ambulate 40 feet + 200 feet + 40 feet, WBAT on the L LE, using a front wheeled walker. Reciprocal, step through gait pattern. Does not complain of knee pain, but notes that he can ?feel it? in the L knee. One episode of L knee almost buckling at the end of the walk. Balance: Static Sitting: Normal Dynamic Sitting: Normal Static Standing: Fair Dynamic Standing: Fair Assessment: Pt is 59-year-old male status post left total knee arthroplasty on post-operative day zero. Pt presents with impairment level findings and functional limitations as listed below. He demonstrated good tolerance with walking as demonstrated by ambulating a longer distance without requiring a rest break or complaining of increased knee pain. Demonstrated good bed mobility and transfers without difficulty. He no longer requires skilled physical therapy at this time. Patient presented with clinical signs and symptoms consistent with current/admitting diagnoses that have resulted to mobility limitations, gait instability, and generalized weakness as demonstrated by the following impairment level findings: 1. Decreased strength to L knee major muscle groups 2. Impaired standing balance 3. Impaired activity tolerance 4. Limitation of joint range of motion in left knee Impairments continue to contribute to the following functional limitations: 1. Dependent bed mobility skills 2. Increased dependence with transfers 3. Inability to safely ambulate without assistive device and physical assistance 4. Increase completion time for mobility ADL performance 5. Increased fall risk 6. Inability to negotiate steps alone safely Patient is assessed as a [id number] moderate complexity based on the following: History: Pt presented with impairment level findings and functional limitations as listed below. AM-PAC raw score of 23 with 11% deficit. Examination: Demonstrable impairment in strength, balance, and range of motion with underlying impairments and functional limitations as documented above Presentation: Evolving Decision Makin moderate complexity Goals: Goals X1 week 1. Supine-Sit independent -NOT MET 2. Sit-Supine independent -NOT MET 3. Sit-Stand independent -NOT MET 4. Stand-Sit independent -NOT MET 5. Bed-Chair independent -NOT MET 6. Chair-Bed independent -NOT MET 7. Independent gait on level surface with use of least restrictive device for at least 300 feet without report of pain nor dyspnea -NOT MET 8. Independent stair negotiation while holding onto bilateral rails for at least 10 steps without report of pain nor dyspnea -NOT MET 9. Independent with home exercise program -NOT MET 10. Good static and dynamic standing balance/tolerance -NOT MET DISCHARGE RECOMMENDATIONS: Discharge to home when medically cleared. Recommend a front wheeled walker for safe ambulation. Thank you very much for this referral. Sydnee Flynn, SPT Doctor of Physical Therapy Student [facility] Supervision provided by Carolina Rosenthal PT, DPT, CLT [facility] [place], [place]
== END 2019-10-06 20:20 | disposition home or self-care (01) ==
LOC: PDS 09:07 → MS 15:55 → PDS 16:34 → MS 19:02
PROVIDERS: Admitting Provider Student in an Organized Health Care Education/Training Program; PCP Emergency Medicine; Visit Provider Student in an Organized Health Care Education/Training Program
PROC: 0SRD0J9 Replacement of Left Knee Joint with Synthetic Substitute, Cemented, Open Approach (ICD-10-PCS; CPT 27447; principal; 2019-10-06 12:30)
DX: M17.32 Unilateral post-traumatic osteoarthritis, left knee (principal); X58.XXXS Exposure to other specified factors, sequela; M25.562 Pain in left knee; Z96.652 Presence of left artificial knee joint; G89.18 Other acute postprocedural pain; E78.5 Hyperlipidemia, unspecified
CPT/HCPCS: 27447; C1776; 76942; 97162; NC; G0378; J0690; J1885; J2250; J2405; J3010

== ENCOUNTER 2019-10-19 10:39 | Outpatient (CLI) | payer BC, SELFPAY ==
--- NOTE | 2019-10-19 10:00 | DI.RAD_ITS ---
EXAM: XR STANDING ALIGNMENT AND XR KNEE LT 1V CLINICAL HISTORY: 1ST POST OP. TECHNIQUE: 2D digital imaging was performed. COMPARISON: XR STANDING ALIGNMENT from 09/30/2019 XR KNEE LT 1V from 10/19/2019 FINDINGS: Patient has a left total knee replacement. The orthopedic hardware appears in good position. Calcif ic densities are seen around the left knee which are likely chronic. In the right knee, there is mil d joint space narrowing medially. Degenerative changes are seen in the right hip. They are mild in degree. The right lower extremity measures 83.9 cm. Left lower extremity measures 82.7 cm. IMPRESSION: Left TKR. DATA REPOSITORY: RADIATION DOSE DELIVERED:
== END 2019-10-19 10:59 ==
PROVIDERS: PCP Emergency Medicine; Visit Provider Student in an Organized Health Care Education/Training Program
DX: Z96.652 Presence of left artificial knee joint (principal); Z47.1 Aftercare following joint replacement surgery; M21.70 Unequal limb length (acquired), unspecified site; M16.11 Unilateral primary osteoarthritis, right hip; M17.11 Unilateral primary osteoarthritis, right knee
CPT/HCPCS: 73560; 77073

== ENCOUNTER 2019-12-31 11:58 | Outpatient (CLI) | payer BC, SELFPAY ==
--- NOTE | 2019-12-31 08:30 | DI.RAD_ITS ---
EXAM: XR KNEE LT 2V AP,LAT CLINICAL HISTORY: INJURY. TECHNIQUE: 2D digital imaging was performed. COMPARISON: CR XR HIP RT AP LAT ONLY from 09/10/2019 CR XR KNEE LT 1V from 10/19/2019 CR XR STANDING ALIGNMENT from 10/19/2019 FINDINGS: BONES: No acute fracture is present. No bony destructive lesion is seen. JOINTS: The knee is normally aligned. No joint effusion is seen. There are stable postsurgical change s of a left total knee replacement. SOFT TISSUE: Normal. IMPRESSION: Stable left TKR. DATA REPOSITORY: RADIATION DOSE DELIVERED:
== END 2019-12-31 12:18 ==
PROVIDERS: PCP Emergency Medicine; Referring Provider Emergency Medicine; Visit Provider Student in an Organized Health Care Education/Training Program
DX: Z96.652 Presence of left artificial knee joint (principal); Z47.1 Aftercare following joint replacement surgery
CPT/HCPCS: 73560

== ENCOUNTER 2020-03-21 07:10 | Day surgery (SDC) | payer BC, SELFPAY ==
--- NOTE | 2020-03-21 06:42 | COLE_ITS ---
Date of service: 03/21/20 Time of Service: 09:00 Colonoscopy Report Date of procedure: 03/21/20 Pre-op diagnosis general: Colon Cancer Screening Post-op diagnosis procedure note: other (Polyps, diverticula and internal hemorrhoids) Procedure: Colonoscopy with polypectomy Surgeon: Taylor New Anesthesia proc note operative: other (General/ ASA 2/ Kwame Soto, NEGAR) Estimated blood loss (mL): 3 Pathology: other (Transverse polyp, Rectal polyps x3) Complications: None Disposition: same day Indications: The patient is here for Colonoscopy pre-op. His last screening was in 2010 and was unremarkable. He has a family history of colon cancer in his maternal grandfather. He has not had any bowel habit changes. -Discussed colonoscopy bowel prep as well as the procedure. Discussed possible complications of the procedure to include bleeding, pain, perforation, missed small lesion/polyp, sore throat, aspiration and adverse reaction to the medications. Questions were answered to patient?s satisfaction. No guarantees w ere implied or given. Prep: Miralax/Dulcolax Procedure Start Time: :00 Procedure End Time: :24 Retraction Time: 20 minutes Findings: 4 sessile polyps Moderate diverticulosis of transverse, descending and sigmoid colon Internal hemorrhoids Procedure Description: After informed consent was obtained the patient was taken to the procedure room and placed in a left decubitous position. Monitors were applied and a time out was done. The patients name, date of , procedure, allergies to medications and metal in their body was reviewed. The patient was then sedated. Once sedated and comfortable a rectal exam was done. External exam was normal. Internal exam revealed a normal sphincter tone and no palpable masses. The prostate felt smooth. The scope was then introduced and retro-flexed. Grade 2 internal hemorrhoids were identified. The scope was then advanced to the cecum without difficulty. The ileocecal valve and appendiceal orifice were identified. The prep was good. The scope was then slowly retracted over 20 minutes back into the rectum. Polyps were removed with cold forceps in the Transverse colon x1 and rectum x3. There was moderate diverticulosis of the Transverse, descending and sigmoid colon. The scope was removed and the patient was woken up and taken back to Same day surgery in stable condition. The patient tolerated the procedure well and there were no immediate complications. Follow up: The patient should follow up in 3-5 years unless they develop changes in bowel habits or other new gastrointestinal complaints.
--- NOTE | 2020-03-21 06:43 | W.PM.DSUDISC ---
Discharge Plan Disposition Patient Disposition: HOME Condition: Good Discharge Details Reason For Visit: Colon Cancer Screening Attending Provider: Taylor New Primary Care Provider: Pankaj Ortiz Home Meds and New Rx's Prescriptions: Continued simvastatin 10 mg tablet 10 mg PO HS Qty: 90 RF: 4 acetaminophen 500 mg tablet 1,000 mg PO Q8H PRN (Reason: pain) Qty: 90 RF: 3 ibuprofen 600 mg tablet 600 mg PO TID PRNQty: 90 RF: 3 Discontinued polyethylene glycol 3350 17 gram/dose powder 238 g PO ONCE Qty: 238 RF: 0 bisacodyl [Dulcolax (bisacodyl)] 5 mg tablet,delayed release (DR/EC) 5 mg PO ONCE Qty: 4 RF: 0 Discharge Instructions Instructions: Diverticulitis (DC), Hemorrhoids (DC), Colorectal Polyps (DC) Additional Instructions: Findings: 4 polyps Diverticulosis Internal hemorrhoids Follow up: 3-5 years Please call if you develop: fevers >101.5 Nausea or Vomiting Abdominal pain that is not transient DAY SURGERY UNIT POST ENDOSCOPY INSTRUCTIONS 1. Because there will be medication in your system for the next 24 hours, you may feel a little sleepy. Your coordination will be affected. Therefore: a. Do not drive or operate dangerous equipment for 24 hours. b. Do not drink alcohol beverages for 24 hours (not even beer). c. Plan to go home and rest for the day. 2. Generally there are no restrictions on your activity after a day or so has gone by, but you may feel a bit fatigued for a few days. 3 After you arrive home you may have a light meal and return to a normal diet as you can tolerate it without feeling sick to your stomach. 4. After surgery, you may feel pain or discomfort. This should be only transient, but if it persists please contact your doctor. 5. If there are any questions regarding the findings of your procedure, please feel free to contact your doctor. 6. If you are unable to contact your doctor with a problem, contact the hospital at [phone]. 7. Continue all your regular medications unless directed otherwise. I understand the above instructions and have no questions. Signature of Patient or Responsible Adult Escort Date/Time Name of Responsible Adult Escort Signature of Nurse Date/Time Activity:: Activity as Tolerated Diet:: High Fiber Discharge Orders Discharge Orders: Discharge Order (Routine); Ordered 03/21/20 Ordered By: Taylor New
[2020-03-21 07:10] VITALS: BP 111/74; PULSE 70; RESP 16; TEMP 36.3; O2SAT 95
[2020-03-21] MEDS: Lactated Ringers 1,000 ML 80 ML IV (07:29)
--- NOTE | 2020-03-21 09:11 | BOWEL_PTH ---
PATIENT: Reny Norris LOC: [facility] U#:[id number] AGE/SX: 59/M ROOM: RE03/21/[address]: Taylor New MD : [id number] BED: DIS: 03/21/2020 SPEC #: [id number] RECD: 03/21/20 12:27 STATUS: SOURAV REQ #: [id number] SANTA: 03/21/20 09:[address]: Taylor New DEPT: Surgical Specimen RECD BY: Miranda Staton ENTERED: 03/21/20 12:28 SP TYPE: Bowel OTHR DR: Pankaj Ortiz DO Tissues: 1 - BIOPSY BOWEL 2 - BIOPSY BOWEL Procedures: GROSS AND MICRO LEVEL 4 Comments: [id number]
[2020-03-21 10:07] VITALS: BP 118/79; PULSE 55; RESP 16; TEMP 36.3; O2SAT 96
== END 2020-03-21 10:20 | disposition home or self-care (01) ==
LOC: SUR 07:11
PROVIDERS: PCP Emergency Medicine; Visit Provider Surgery
PROC: 0DJD8ZZ Inspection of Lower Intestinal Tract, Via Natural or Artificial Opening Endoscopic (ICD-10-PCS; CPT 45378; principal; 2020-03-21 08:30)
DX: Z12.11 Encounter for screening for malignant neoplasm of colon (principal); D12.3 Benign neoplasm of transverse colon; D12.8 Benign neoplasm of rectum; K64.1 Second degree hemorrhoids; K57.30 Diverticulosis of large intestine without perforation or abscess without bleeding; Z80.0 Family history of malignant neoplasm of digestive organs
CPT/HCPCS: 45380; 88305; J2001; J2704

== ENCOUNTER 2021-07-12 09:17 | Outpatient (REF) | payer BC, SELFPAY ==
[2021-07-12 12:48] LABS: HCT 50.4 % (40.0-50.0); HGB 16.7 g/dL (13.5-17.5); MCH 30.4 pg (27.0-33.0); MCHC 33.1 % (32.0-36.0); MCV 91.6 fL (80-95); MPV 10.8 fL (8.0-11.0); Platelet Count 257 10^3/uL (130-400); RDW 12.4 % (11.8-14.1); RDW-SD 42.3 fL; WBC 7.63 10^3/uL (4.4-10.8)
[2021-07-12 13:07] LABS: BUN 11 mg/dL (7-18); CREATININE 0.9 mg/dL (0.70-1.30); Cholesterol 211 mg/dL (<200); Glucose 95 mg/dL (74-106); Triglyceride 313 mg/dL (<150)
[2021-07-12 13:08] LABS: ALT 35 U/L (16-63); AST 16 U/L (15-37); Albumin 3.8 g/dL (3.4-5.0); Alkaline Phosphatase 73 U/L (46-116); Anion Gap 8.4 mmol/L (3-11); Bilirubin, Total 0.7 mg/dL (0.2-1.0); CO2 28.6 mmol/L (21.0-32.0); Calculated LDL 110 mg/dL (<100); Chloride 102 mmol/L (98-107); HDL Cholesterol 39 mg/dL (40-60); Potassium 4.1 mmol/L (3.5-5.1); Sodium 139 mmol/L (136-145); TSH (W/Ref FT4) 1.98 uIU/mL (0.36-3.74); Total Protein 8.2 g/dL (6.4-8.2); Troponin I < 0.05 ng/mL (<0.06)
== END 2021-07-12 09:18 | disposition home or self-care (01) ==
LOC: LBN 09:17
PROVIDERS: PCP Emergency Medicine; Visit Provider Family Medicine
DX: I10 Essential (primary) hypertension (principal); R07.89 Other chest pain; E78.5 Hyperlipidemia, unspecified
CPT/HCPCS: 80053; 80061; 85027; 84443; 84484

== ENCOUNTER 2021-07-12 10:12 | Outpatient (CLI) | payer BC, SELFPAY ==
--- NOTE | 2021-07-12 10:00 | RT.EKG_ITS ---
APPROVED REPORT Exam: Resting ECG Reason for Exam: chest discomfort Patient Location: O HR:76 bpm ECG Measurements Heart Rate 76 AXIS MN 130 P 48 QRSd 89 QRS 61 QT 381 T 2 QTc 429 Conclusion Sinus rhythm...normal P axis, V-rate 60- 99 Low voltage, extremity leads...all extremity leads <0.5mV
== END 2021-07-12 10:13 | disposition home or self-care (01) ==
LOC: DI.CM 10:13
PROVIDERS: PCP Emergency Medicine; Visit Provider Family Medicine
DX: R07.89 Other chest pain (principal)
CPT/HCPCS: 93010

== ENCOUNTER 2021-07-17 00:20 | Outpatient (CLI) | payer BC, SELFPAY ==
--- NOTE | 2021-07-17 09:00 | ETT_ITS ---
APPROVED REPORT Exam: Exercise Treadmill Patient Location: Out-Patient Room/Bed: Stress Nurse: Haley Beaver RN Ordering Provider:ÓSCAR REED, Contact Number: [phone] BMI: 32.61 Baseline Rhythm: Sinus Rhythm Comment: w/ occasional PVCs Indications: RECENT CHEST PAIN, SHANNON, POSSIBLE RISK FACTORS Medical History Medical History: HLD, Tobacco use Cardiac Medications: Simvastatin Allergies: No known drug allergies Cardiac Risk Factors: Hyperlipidemia, FHX of CAD, Smoking (current) Previous Cardiac Procedures: None Pretest Chest Pain Characteristics: Reports dull ache of left lateral chest with deep respirations an d certain movements Exercise History: Sedentary Physical Disabilities: None Lung Sounds: Clear to auscultation Heart Sounds: Regular Stress Test Details Test: Exercise stress testing was performed using a Guillermo protocol. Rest Stress HR Resting HR Supine: 68 bpm Max Heart Rate (APMHR): 159 bpm Resting HR Standin bpm Target HR (85% APMHR): 135 bpm Max HR Achieved: 141 bpm % of APMHR: 88 Recovery HR: 92 bpm HR response to stress: Normal HR response to stress BP Resting BP Supine: 120/76 mmHg Resting BP Standin/74 mmHg Max BP: 156/78 mmHg Recovery BP: 132/76 mmHg BP response to stress: Normal blood pressure response to stress. ECG Resting ECG: Sinus Rhythm Ectopy: occasional PVCs Stress ECG: Sinus Tachycardia ST Change: No significant ST segment changes noted Arrhythmia: frequent mutifocal PVCs, intermittent bigeminy, couplets Recovery ECG: Sinus Rhythm Recovery ST Change: No significant ST segment changes noted Recovery Arrhythmia: PVCs, rare PAC Clinical Reason for Termination: terminated by RN d/t safety concerns Stress Symptoms: General Fatigue, Dyspnea Exercise duration: 09 min39 sec Highest Stage Reached: Stage 4: 4.2 mph at 16% grade. Exercise capacity: 9.3 METs Mccarthy Treadmill Score: 9.3 Rate Pressure Product: 39681 Stress ECG Conclusion 1. The patient exercised for 9 minutes (9 METS). Exercise was stopped due to safety concerns from e nurse (patient shoelace became untied). 2. Patient no symptoms suggestive of ischemia. 3. Patient's blood pressure and heart rate augmented appropriately. 4. There were occasional PVCs 5. There is no evidence of ischemia on the ECG portion of the exam. Mccarthy Treadmill Score is 9.3 which is Low risk. Stress Test Summary STAGE Time (mins) Speed (mph) Grade (%) HR BP SYMPTOMS METS Supine 68 120/76 Standing 72 122/74 1 3 1.7 10 105 126/72 SpO2 97% mild SOB 4.6 2 6 2.5 12 118 140/76 7 3 9 3.4 14 126 144/78 SpO2 95% 10.2 1 min recovery 115 152/72 SpO2 96% 3 min recovery 93 156/78 6 min recovery 92 132/76 No change in left lateral chest discomfort with exercise. Exercise terminitated by RN due to patients shoe lace coming untied.
--- NOTE | 2021-07-17 13:45 | DI.RAD_ITS ---
Exam(s) XR CHEST 2V PA LATERAL EXAM: XR CHEST 2V PA LATERAL CLINICAL HISTORY: recent left sided CHEST PAIN, ATYPICAL, R07.9. TECHNIQUE: 2D digital imaging was performed. COMPARISON: CR CHEST 2 VIEWS PA,LAT from 06/30/2014 FINDINGS: Heart size is normal. The mediastinum is not widened. Left lung is clear. Nodule in the right lung base is probably breast nipple. No pleural effusions. IMPRESSION: There is a round noncalcified nodule right lung base, possibly representing breast nipple. Recommend repeating the frontal view with bilateral metallic nipple markers in place. DATA REPOSITORY: RADIATION DOSE DELIVERED:
== END 2021-07-17 00:40 ==
PROVIDERS: PCP Emergency Medicine; Visit Provider Family Medicine
DX: R07.9 Chest pain, unspecified (principal); R06.09 Other forms of dyspnea; E78.5 Hyperlipidemia, unspecified; Z82.49 Family history of ischemic heart disease and other diseases of the circulatory system; F17.210 Nicotine dependence, cigarettes, uncomplicated; R91.8 Other nonspecific abnormal finding of lung field
CPT/HCPCS: 71046; 93017

== ENCOUNTER 2021-07-18 19:51 | Outpatient (CLI) | payer BC, SELFPAY ==
--- NOTE | 2021-07-18 13:59 | DI.RAD_ITS ---
Exam(s) XR CHEST 1V IN DI DEPT EXAM: XR CHEST 1V IN DI DEPT CLINICAL HISTORY: Follow-up initial cxr, questionable nodule on right.? nipple shadow n TECHNIQUE: 2D digital imaging was performed of the chest. One image was obtained. An AP view was ob tained. COMPARISON: CR XR CHEST 2V PA LATERAL from 07/17/2021 CR XR CHEST 2V PA LATERAL from 07/17/2021 FINDINGS: MEDIASTINUM: Normal. HEART: Normal. PULMONARY VASCULATURE: Normal. LUNGS: Clear. Nipple markers were placed. The nodule in the right lung base corresponds to the patie nt's nipple. PLEURAL SPACE: No pleural effusion or pneumothorax. BONE:Within normal limits for the patient's age. OTHER FINDINGS:Normal. IMPRESSION: No acute pulmonary findings. DATA REPOSITORY: RADIATION DOSE DELIVERED:
== END 2021-07-18 20:11 ==
PROVIDERS: PCP Emergency Medicine; Visit Provider Family Medicine
DX: R93.89 Abnormal findings on diagnostic imaging of other specified body structures (principal)
CPT/HCPCS: 71045

== ENCOUNTER 2022-10-03 02:35 | Outpatient (CLI) | payer BC, SELFPAY ==
[2022-10-03 12:49] LABS: Hemoglobin A1C 5.8 % (<5.7)
[2022-10-03 12:50] LABS: Calculated LDL 52 mg/dL (<100); Cholesterol 153 mg/dL (<200); HDL Cholesterol 37 mg/dL (40-60); Triglyceride 322 mg/dL (<150)
== END 2022-10-03 02:36 | disposition home or self-care (01) ==
LOC: LOS 02:36
PROVIDERS: PCP Nurse Practitioner Family; Visit Provider Nurse Practitioner Family
DX: E78.5 Hyperlipidemia, unspecified (principal); Z13.1 Encounter for screening for diabetes mellitus
CPT/HCPCS: 36415; 80061; 83036

== ENCOUNTER 2022-10-20 05:15 | Emergency (ER) | payer BC, SELFPAY ==
[2022-10-20 05:23] VITALS: BP 153/70; PULSE 77; RESP 16; TEMP 36.7; O2SAT 98
--- NOTE | 2022-10-20 05:39 | W.ED.GENAD ---
Discharge Plan Disposition Patient Disposition: Home Condition: Good Discharge Details Clinical Impression: Epididymitis Primary Care Provider: Silvino Zimmerman ED Provider: Adonis Nicole Home Meds and New Rx's Prescriptions: New levofloxacin 500 mg tablet 500 mg PO DAILY Qty: 10 0RF No Action rosuvastatin [Crestor] 10 mg tablet 10 mg PO DAILY Qty: 90 3RF Discharge Instructions Instructions: Epididymitis (ED) Additional Instructions: At this time your symptoms appear concerning for epididymitis. Please take 800 mg of Advil every 6 hours and 1000 mg of Tylenol every 6 hours for the next few days until your symptoms resolved. Please keep in mind that these are the maximum doses. Please take the antibiotic as prescribed. It is been sent to your pharmacy on file. Please wear tighter fitting and more supportive underwear. Avoid any vigorous physical activities. If you notice any worsening of your symptoms, or any new symptoms such as vomiting, diarrhea, fever, chills, shortness of breath, chest pain, numbness, weakness, or fainting , please return immediately to the emergency department for reevaluation. Please follow up with your primary care provider as soon as possible for reassessment and reevaluation. As always, it was a pleasure participating in your medical care today. Referrals: Silvino Zimmerman, LYE MACHINE OPERATOR [Primary Care Provider] - Medical Decision Making This is a pleasant 62-year-old male with a past medical history of high cholesterol and a vasectomy many years ago who presents today for evaluation of left testicular pain. Patient states that about 24 hours ago it began aching, and it slowly gradually worsened and its achiness over the next 24 hours. This morning when he woke up it was significantly tender. He did take Advil, and came to the ER for assessment. By the time the patient arrived in the ER the achiness had notably improved after the Advil. He denies any dysuria, fever or chills. He denies any recent trauma. He states that he has not been sexually active in any way with another male or female in years. He denies any history of STDs. He denies any difficulty urinating. No abdominal complaints. No other complaints at this time. Genital exam demonstrates a normal right testicle. Normal cremasteric reflex bilaterally. Mild tenderness on palpation of the left testicle. No large hydrocele. Epididymis does appear inflamed and irritated, and tender. No abnormal lie. No large mass otherwise. Symptoms are clinically inconsistent with testicular torsion. Symptoms appear consistent with epididymitis. I did offer staying the next 2 to 3 hours until ultrasound arrived for formal ultrasound, however patient at this time states that he feels much better, and would like to go home but will come back if things worsen. I did discuss the risks and benefits of this, including the worst-case scenarios and the patient understands. Patient will be given levofloxacin for treatment, dose will be given here and a prescription will be sent to home. Recommend tight fitting underwear,. Continued NSAID therapy. With no history of STDs, no sexual activity in the last few years, STD causative agent is notably less likely, thus her choice for levofloxacin. Discussed red flags for which to return. I have extensively reviewed the treatment plan and discharge instructions with the patient. I have addressed all patient concerns at this time. The patient was made aware of what symptoms to monitor for that would warrant a return to the emergency department. Discussed the plan with the patient, they demonstrate verbal understanding and agreement with our assessment and plan at this time. The documentation in this chart was dictated using [employer] dictation software. Please excuse any dictation errors. HPI General Date/Time Provider Initiated Documentation: 10/20/22 05:23. HPI Narrative: This is a pleasant 62-year-old male with a past medical history of high cholesterol and a vasectomy many years ago who presents today for evaluation of left testicular pain. Patient states that about 24 hours ago it began aching, and it slowly gradually worsened and its achiness over the next 24 hours. This morning when he woke up it was significantly tender. He did take Advil, and came to the ER for assessment. By the time the patient arrived in the ER the achiness had notably improved after the Advil. He denies any dysuria, fever or chills. He denies any recent trauma. He states that he has not been sexually active in any way with another male or female in years. He denies any history of STDs. He denies any difficulty urinating. No abdominal complaints. No other complaints at this time. Related Data Home Medications Medication Instructions Recorded Confirmed rosuvastatin 10 mg tablet (Crestor) 10 mg PO DAILY #90 tabs 04/06/22 09/24/22 levofloxacin 500 mg tablet 500 mg PO DAILY #10 tabs 10/20/22 Previous Rx's Medication Instructions Recorded rosuvastatin 10 mg tablet (Crestor) 10 mg PO DAILY #90 tabs 04/06/22 levofloxacin 500 mg tablet 500 mg PO DAILY #10 tabs 10/20/22 Allergies Allergy/AdvReac Type Severity Reaction Status Date / Time No Known Allergies Allergy Verified 09/24/22 12:55 General Stated Complaint: GenMedical PAULINA: 3 Review of Systems All systems reviewed & are unremarkable except as noted in HPI and below PFSH All Active Problems Epididymitis (Acute) COVID (Acute) June 2022 Atypical pigmented skin lesion (Acute) Personal history of tobacco use (Acute) 2020, occasional use, about 15 pk yr hx Tubular adenoma of colon (Acute) 2019 Osteoarthritis of right hip (Acute) Seborrheic keratoses (Acute) 02/07/16-LEFT TEMPORAL REGION Hyperlipidemia (Acute) Medical History Hepatitis A 2001 - Food poisoning from a restaurant Smoker (06/23/13) Quit 08/2019 Surgical History History of total left knee replacement (TKR) (10/06/19) Hx of colonoscopy S/P reconstruction of ligament of knee joint Family History Mother Essential hypertension Hyperlipidemia Father , AGE 87 Heart disease Hyperlipidemia Stroke Sister Bladder cancer Maternal Grandfather , AGE 62 Colon cancer Alcohol abuse Paternal Grandfather , AGE 77 Heart disease Myocardial infarction Alcohol abuse Maternal Grandmother , AGE 84 No problems noted. Paternal Grandmother , AGE 85 Diabetes Heart disease Hyperlipidemia Sister Depression Daughter Asthma Daughter No problems noted. Social History Smoking/Tobacco Use Status: Former Tobacco Use tobacco type: cigarettes Quit Date: 07/12/22 Tobacco: How many years used: 45 Second Hand Exposure: Yes Smoking risk assessment performed?: Yes Alcohol Intake: current Alcohol Intake frequency: a few times a week Alcohol type: beer and wine Drug use: Rarely Substance use type: marijuana Caregiver/Support person: No Household members: family and children Housing: house Communication Needs: None Do you need help understanding health information?: Never Pets and animals: Yes Pets and animals: cat(s), dog(s) and farm animals Sexually active: No Do you think of yourself as: straight/heterosexual Current gender identity: male What is your relationship status?: How often do you talk on the phone with friends or family?: three or more times per week How often do you get together with friends or relatives?: three or more times per week How often do you attend moravian or oriental orthodox services?: decline to answer Do you belong to any clubs or organized social groups?: yes Panel score (0-1 are the most socially isolated patients): 2 What type of physical activity do you participate in: other 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 3.ENT: Atraumatic external nose and ears. Moist MM. Neck: Symmetric, trachea midline, No thyromegaly. 4.CVS: +S1/S2, No murmurs or gallops. Peripheral pulses 2+ and equal in all extremities. Brisk capillary refill in all extremities. 5.RESP: Unlabored respiratory effort. Clear to auscultation bilaterally. No wheezes rales or rhonchi 6.GI: Soft, Nontender/Nondistended, No hepatosplenomegaly. No guarding or rebound. Genital exam was performed with female nurse at bedside. Genital exam demonstrates a normal right testicle. Normal cremasteric reflex bilaterally. Mild tenderness on palpation of the left testicle. No large hydrocele. Epididymis does appear inflamed and irritated, and tender. No abnormal lie. No large mass otherwise. 7.MSK: Normocephalic/Atraumatic, Extremities w/o deformity or ttp No cyanosis or clubbing, Normal movement of all extremities 8.Skin: Warm, Dry. No rashes or lesions. 9.Neuro: washer hand II-XII grossly intact. Sensation grossly intact, no focal neurologic deficits. 10.Psych: (AAO) x3. Appropriate mood and affect Course Vital Signs Vital signs: Vital Signs Temperature 36.7 C 10/20/22 05:23 Pulse 77 10/20/22 05:23 Respiratory Rate 16 10/20/22 05:23 Blood Pressure 153/70 H 10/20/22 05:23 Pulse Oximetry 98 10/20/22 05:23 Temperature 36.7 C 10/20/22 05:23 Temperature Source Oral 10/20/22 05:23 Pulse 77 10/20/22 05:23 Respiratory Rate 16 10/20/22 05:23 Respiratory Effort Normal 10/20/22 05:23 Blood Pressure 153/70 H 10/20/22 05:23 Pulse Oximetry 98 10/20/22 05:23 Oxygen Delivery Method Room Air 10/20/22 05:23 Oxygen Flow Rate 0 10/20/22 05:23 Pain Level 2 10/20/22 05:23
[2022-10-20] MEDS: levoFLOXacin 500 MG, levoFLOXacin 250 MG 750 MG PO (05:41)
== END 2022-10-20 06:09 | disposition home or self-care (01) ==
PROVIDERS: Emergency Provider Student in an Organized Health Care Education/Training Program; PCP Nurse Practitioner Family
DX: N45.1 Epididymitis (principal)
CPT/HCPCS: 99283

== ENCOUNTER 2023-03-18 08:09 | Day surgery (SDC) | payer BC, SELFPAY ==
--- NOTE | 2023-03-17 11:55 | W.PM.DSUDISC ---
Date of service: 03/18/23 Time of Service: 10:30 Discharge Plan Disposition Patient Disposition: Home Condition: Good Discharge Details Reason For Visit: Screening colonoscopy Attending Provider: Huey Bentley Primary Care Provider: Silvino Zimmerman Home Meds and New Rx's Prescriptions: Continued rosuvastatin [Crestor] 10 mg tablet 10 mg PO HS Discontinued bisacodyl [Dulcolax (bisacodyl)] 5 mg tablet,delayed release (DR/EC) 5 mg PO ONCE Qty: 4 0RF Rx Instructions: Take per colonoscopy instructions provided by ordering providers office polyethylene glycol 3350 17 gram/dose powder 17 g PO ONCE Qty: 238 0RF Rx Instructions: Take per colonoscopy instructions provided by ordering providers office Discharge Instructions Instructions: Colorectal Polyps (GEN), Diverticulosis (GEN), Diverticulosis Diet (GEN) Additional Instructions: Kwame, we were able to complete your colonoscopy today without any difficulty. You did have 1 polyp, that was about 50 cm from your anus. It was 0.5 cm. This is medium sized with regards to polyps. It had no other worrisome features about it. I removed it completely. I will be in touch when I have the results of the polyp report regarding the nature of it, which will be used to help determine when you should have your next colonoscopy. Incidentally, you also have a fair amount of diverticulosis. These are small weak spots in the colon wall. They typically accumulate as patients age. The best way to take care of them is to maintain a diet that is rich in fiber, and to stay well-hydrated. We will attach some general information here regarding both colorectal polyps, as well as diverticulosis. 1. If tolerated, consume a soft, low fiber diet for 1-2 days. 2. Do not drive, drink alcohol, operate machinery, make critical decisions, or do activities that require coordination or balance for 24 hours. 3. Because air was put into your colon during the procedure, expelling air from your rectum (passing gas or farting) is normal. 4. You may not have a bowel movement for 1-3 days because of the colonoscopy prep. This is normal. 5. Go directly to the emergency room if you notice any of the following: Develop chills (warm to touch), or if you have a thermometer and your temperature is above 101 Difficulty breathing or difficultly swallowing Persistent vomiting Severe abdominal pain, other than gas cramps Severe chest pain Black, tarry stools Any bleeding ? exceeding one tablespoon 6. Call your physician if the site where your intravenous was started becomes red, swollen, painful, and warm to touch. 7. Your physician has reviewed your pre-procedure medications. Please continue to take those medications as previously ordered. You will be given specific information/education regarding any changes to your medications before leaving. Activity:: Activity as Tolerated Diet:: As Tolerated Discharge Orders Discharge Orders: Discharge Order (Routine); Ordered 03/17/23 Ordered By: Huey Bentley DS: Diagnosis Discharge Diagnosis (1) Screen for colon cancer: Status: Acute Asessment and Plan: I will follow-up on polypectomy results
--- NOTE | 2023-03-17 11:56 | W.COLOREPORT ---
Date of service: 03/18/23 Time of Service: 10:32 Colonoscopy Report Date of procedure: 03/18/23 Pre-op diagnosis general: Screening colonoscopy Post-op diagnosis procedure note: other (Colon polyp at 50 cm; diverticulosis) Procedure: Colonoscopy with polypectomy Surgeon: Huey Bentley Anesthesia Type: General:No Airway Estimated blood loss (mL): 5 Pathology: other (0.5 cm polyp at 50 cm from the anus) Complications: None Disposition: same day Indications: Kwame is a 62-year-old male who undergone colonoscopy in the past. He was diagnosed with adenomatous polyps. He is following up for his next screening colonoscopy Prep: Miralax/Dulcolax Procedure Start Time: 10:09 Procedure End Time: 10:21 Retraction Time: 6 Findings: Left-sided diverticulosis, 0.5 cm polyp at 50 cm from the anus Procedure Description: After the induction of monitored anesthetic care, and with the patient in left lateral decubitus position, I began by performing an external anorectal exam.? Perineum and skin were normal, as was the anal verge.? There was no evidence of external hemorrhoids.? Next, I performed a digital rectal exam.? I did not appreciate any abnormal findings.? Next, I advanced a colonoscope into the rectal vault.? I performed retroflexion.? This appeared normal.? Using insufflation, I then advanced the colonoscope beyond the rectal folds and into the sigmoid colon before advancing towards the cecum.? There was extensive sigmoid and left-sided diverticulosis. The quality of the prep was excellent.? The scope was noted to be in the cecum by identification of the ileocecal valve and appendiceal orifice.? I then began withdrawing the colonoscope using repeated irrigation as necessary for full evaluation of the colonic mucosa. Around 50 cm from the anal verge I identified a 0.5 cm polyp. ?It appeared sessile in character. ?I was able to remove this with a cold forceps. ?I examined the site, and there was minimal bleeding. ?Once this was completed, I continued to withdraw the scope and examine the remainder of the colonic mucosa.?Once the scope was withdrawn to the level of the rectum, great care was taken to examine portions of the rectal folds.? Finally, the scope was withdrawn and the patient was brought to the same-day surgery recovery unit as the anesthetic wore off. ?The findings and instructions were shared with the patient prior to discharge.
[2023-03-18 08:32] VITALS: BP 119/78; PULSE 60; RESP 16; TEMP 36.2; O2SAT 96
--- NOTE | 2023-03-18 09:00 | W.ANESPRE ---
General Info Date of Service Date Performed: 03/18/23 Height: 5 ft 4 in Weight: 82.6 kg Body Mass Index (BMI): 31.2 Surgical Procedure: Operation Date: 03/18/23 10:20 Proposed Procedure Side Surgeon p Colonoscopy Huey Bentley MD Meds Allergies and Home Medications Allergies Allergy/AdvReac Type Severity Reaction Status Date / Time No Known Allergies Allergy Verified 03/18/23 08:55 Home Medication Medication Instructions Recorded rosuvastatin 10 mg tablet (Crestor) 10 mg PO HS 03/15/23 Current Visit Medications: Current Medications Generic Name Dose Route Start Last Admin Trade Name Freq PRN Reason Stop Dose Admin Hyoscyamine Sulfate 0.125 mg 03/17/23 11:57 Hyoscyamine 0.125 Mg Sl/Oral/Chew SL 04/16/23 11:56 DIRECTED PRN Ringer's Solution 1,000 mls @ 80 mls/hr 03/18/23 06:00 IV 04/14/23 23:59 INFUSION [facility] IV Miscellaneous Supplies 1 each 03/18/23 06:00 Iv Access IV 04/14/23 23:59 DIRECTED ISMAEL Ondansetron HCl 4 mg 03/17/23 11:57 Ondansetron 4 Mg/2 Ml Vial IVP 04/16/23 11:56 Q4H PRN PRN Nausea / Vomiting Sodium Chloride 0 ml 03/18/23 06:00 Normal Saline Flush 10 Ml Syr IV 04/14/23 23:59 PRN PRN Sodium Chloride 0 ml 03/18/23 06:00 Normal Saline 10 Ml Vial IJ 04/14/23 23:59 DIRECTED PRN Sterile Water 0 ml 03/18/23 06:00 Water,Injection,Sterile 10 Ml Vial IJ 04/14/23 23:59 DIRECTED PRN PFSH Active Problems Active Problems: Problem Status Onset Code Screen for colon cancer Z12.11 Tinea cruris B35.6 COVID U07.1 Atypical pigmented skin lesion L81.9 Personal history of tobacco use Z87.891 Tubular adenoma of colon D12.6 Osteoarthritis of right hip M16.11 Seborrheic keratoses L82.1 Hyperlipidemia E78.5 Medical History Medical History Hepatitis A 2002 - Food poisoning from a restaurant Smoker (06/23/13) Quit 08/2019 Surgical History Surgical History History of total left knee replacement (TKR) (10/06/19) Hx of colonoscopy S/P reconstruction of ligament of knee joint 1980s Tobacco Smoking/Tobacco Use Status: Current every day Tobacco Type: cigarettes Passive smoking exposure: Yes Second hand exposure: Yes Alcohol Alcohol Intake: current Alcohol intake frequency: a few times a week Alcohol type: beer and wine Substance Use Substance use: Rarely Substance use type: marijuana Vital Signs and Lab Results Vital Signs Most Recent Vital Signs in EMR: Most Recent Vital Signs Temp Pulse Resp BP Pulse Ox 36.2 C L 60 16 119/78 96 03/18/23 08:32 03/18/23 08:32 03/18/23 08:32 03/18/23 08:32 03/18/23 08:32 Lab Results Blood Type / Crossmatch: No Data to Display Complete Blood Count: No Data to Display Complete Metabolic Panel: No Data to Display Liver Function Panel: No Data to Display Coagulation Panel: No Data to Display Cardiac Panel: No Data to Display Arterial Blood Gas: No Data to Display Venous Blood Gas: No Data to Display Pancreas Panel: No Data to Display Thyroid Panel: No Data to Display Infectious Disease: No Data to Display Blood Cultures: No Data to Display Toxicology Panel: No Data to Display Anesthesia Assessment and Plan Anesthesia History Personal History: No History of Anesthesia Complications Family History: No Family History of Anesthesia Complications Exercise Tolerance Exercise Tolerance: Metabolic Equivalents>4 Pertinent Negatives Pertinent Negatives: No Symptoms of GERD, No Major Cardiovascular Symptoms or Complaints, No Major Pulmonary Symptoms or Complaints and No History of CVA/TIA Cardiac & Pulmonary Exam Cardiac Exam: Normal S1/S2 Heart Sounds Pulmonary Exam: Clear Bilateral Breath Sounds Implantable Cardiac Device Does patient have a Pacemaker or an ICD?: No Airway Exam Known Difficult Airway: No Mallampati Class: 2 Mouth Opening: Normal (> 3cm) Thyromental Distance: Greater than 3 cm Neck Range of Motion: Full ROM Neck Circumference: Normal Teeth Condition: Normal Dentition ASA Classification ASA Score: ASA 2 Emergency Case?: No NPO Status NPO Status: NPO Clears >2 hours, Solids >8 hours Anesthesia Plan Resuscitation Status: Full Code Anesthesia Technique: General Anesthesia Airway Planned: Natural Airway Monitors Used: Standard Monitors Preoperative Comments:: 62 yo male patient for colonoscopy Pmhx: Smoker (2-3/day), tubular adenoma of colon, COVID 06/2022
[2023-03-18] MEDS: Lactated Ringers 1,000 ML 80 ML IV (09:05)
[2023-03-18 09:11] VITALS: BMI 31.2
--- NOTE | 2023-03-18 10:17 | BOWEL_PTH ---
PATIENT: Reny Norris LOC: [facility] U#:[id number] AGE/SX: 62/M ROOM: RE03/18/[address]: Huey Bentley MD : 1960 BED: DIS: 03/18/2023 SPEC #: [id number] RECD: 03/18/23 12:24 STATUS: SOURAV RE #: [id number] SANTA: 03/18/23 10:[address]: Huey Bentley DEPT: Surgical Specimen RECD BY: Miranda Staton ENTERED: 03/18/23 12:24 SP TYPE: Bowel OTHR DR: Silvino Zimmerman, KERVIN Tissues: 1 - BIOPSY BOWEL Procedures: GROSS AND MICRO LEVEL 4 Comments: [id number]
[2023-03-18 10:26] VITALS: BP 118/78; PULSE 70; RESP 18; TEMP 36.7; O2SAT 96
[2023-03-18 10:54] VITALS: BP 121/79; PULSE 61; RESP 18; TEMP 36.4; O2SAT 96
--- NOTE | 2023-03-18 11:01 | W.ANESPOSTOP ---
Postoperative Evaluation Date, Time and Location Date Performed: 03/18/23 Time Performed: 11:00 Patient Location: Day Surgery Unit Vital Signs Most Recent Imported Vital Signs: Most Recent Vital Signs Temp Pulse Resp BP Pulse Ox 36.7 C 70 18 118/78 96 03/18/23 10:26 03/18/23 10:26 03/18/23 10:26 03/18/23 10:03/18/23 10:26 Pain Score Most Recent Pain Score: Most Recent Pain Score Pain Level 0 03/18/23 10:26 Assessment Mental Status: Awake (Alert & Oriented to Patient Baseline) Airway and Respiratory Function: Patent airway with normal (patient baseline) respiratory exam Cardiovascular Function: Hemodynamically Stable Hydration Status: Adequately Hydrated Nausea & Vomiting: No Nausea or Vomiting Pain: Pt. Denies Any Pain Peripheral Nerve Block: Patient did not receive a nerve block
== END 2023-03-18 11:00 | disposition home or self-care (01) ==
PROVIDERS: PCP Nurse Practitioner Family; Visit Provider Surgery
PROC: 0DJD8ZZ Inspection of Lower Intestinal Tract, Via Natural or Artificial Opening Endoscopic (ICD-10-PCS; CPT 45378; principal; 2023-03-18 10:15)
DX: Z12.11 Encounter for screening for malignant neoplasm of colon (principal); D12.5 Benign neoplasm of sigmoid colon; K57.30 Diverticulosis of large intestine without perforation or abscess without bleeding; Z86.010 Personal history of colon polyps
CPT/HCPCS: 45380; 88305; J2001

== ENCOUNTER 2023-10-22 09:31 | Outpatient (CLI) | payer BC, SELFPAY ==
[2023-10-22 09:51] LABS: Hemoglobin A1C 5.9 % (<5.7)
[2023-10-22 10:43] LABS: Calculated LDL 85 mg/dL (<100); Cholesterol 173 mg/dL (<200); HDL Cholesterol 46 mg/dL (40-60); Triglyceride 212 mg/dL (<150)
== END 2023-10-22 09:32 | disposition home or self-care (01) ==
LOC: LBO 09:33
PROVIDERS: PCP Nurse Practitioner Family; Visit Provider Nurse Practitioner Family
DX: E78.5 Hyperlipidemia, unspecified (principal); Z13.1 Encounter for screening for diabetes mellitus
CPT/HCPCS: 36415; 80061; 83036

== ENCOUNTER 2024-04-30 16:59 | Emergency (ER) | payer BC, SELFPAY ==
[2024-04-30 17:04] VITALS: BP 139/93; PULSE 86; RESP 20; TEMP 37.6; O2SAT 92
--- NOTE | 2024-04-30 17:15 | DI.RAD_ITS ---
Exam(s) XR ELBOW LT COMPLETE XR FOREARM LT XR WRIST LT COMPLETE EXAM: XR FOREARM LT CLINICAL HISTORY: ARM PAIN. TECHNIQUE: 2D digital imaging was performed. Two views. COMPARISON: CR XR WRIST LT COMPLETE from 04/30/2024 CR XR ELBOW LT COMPLETE from 04/30/2024 CR XR FOREARM RT from 04/30/2024 FINDINGS: BONES: There is a question of cortical discontinuity seen on the lateral view of the distal radius wh ich could represent a nondisplaced fracture. No additional wrist fractures are suspected. There is a nondisplaced mild impaction fracture of the neck of the proximal radius. There is no visible exten maximilian to the articular surface. No additional fractures are seen at the elbow. No bony destructive l esion is seen. Joints: Elbow joint effusion. SOFT TISSUE: Marked soft tissue swelling around the wrist. IMPRESSION: Mildly impacted fracture of the radial neck. Question of minimal cortical discontinuity at the posterior aspect of the distal radius. DATA REPOSITORY: RADIATION DOSE DELIVERED:
[2024-04-30] MEDS: MORPHine IR 15 MG TAB PO (17:26)
--- NOTE | 2024-04-30 18:18 | DI.RAD_ITS ---
Exam(s) XR FOREARM RT XR ELBOW RT COMPLETE XR WRIST RT COMPLETE EXAM: XR FOREARM RT CLINICAL HISTORY: ARM PAIN. TECHNIQUE: 2D digital imaging was performed. Two views. COMPARISON: CR XR ELBOW RT COMPLETE from 04/30/2024 CR XR WRIST RT COMPLETE from 04/30/2024 FINDINGS: BONES: There is a fracture through the radial head through the midportion at the articular surface. There is mild impaction of 1-2 millimeters of the lateral fracture fragment. No additional fractures are seen at the elbow or forearm. No bony destructive lesion is seen. The wrist is unremarkable. Joints: Elbow joint effusion. Carpal alignment is normal. SOFT TISSUE: Normal. IMPRESSION: Mildly depressed fracture of the radial head. DATA REPOSITORY: RADIATION DOSE DELIVERED:
[2024-04-30] MEDS: MORPHine IR 15 MG TAB, 4 TABS/BTL PO (19:15)
[2024-04-30 19:22] VITALS: BP 131/83; PULSE 75; RESP 14; O2SAT 97
--- NOTE | 2024-04-30 22:26 | ED.GENADUL_ITS ---
Discharge Plan Disposition Patient Disposition: Home Discharge Details Clinical Impression: Closed fracture of neck of left radius, Distal radius fracture, left, Closed fracture of head of right radius Primary Care Provider: Silvino Zimmerman ED Provider: [place] Home Meds and New Rx's Prescriptions: No Action rosuvastatin [Crestor] 10 mg tablet 10 mg PO HS Qty: 90 3RF Discharge Instructions Additional Instructions: Wear the brace on your left wrist until cleared by orthopedics You can wear the sling on either arm for comfort. Gentle range of motion of both elbows is encouraged Take the medication provided (morphine) for severe pain. You can also take Motrin and Tylenol A referral has been sent to orthopedics for follow-up and they will contact you to schedule an appointment. HPI General Date/Time Provider Initiated Documentation: 04/30/24 17:15 . Limitations to Documentation: no limitations . Information obtained by: patient . HPI Narrative: 63-year-old gentleman with no significant past medical history presents for evaluation of acute onset bilateral arm pain. He reports that just prior to arrival he was standing on the gait in his [place] when he fell forward and landed with both arms outstretched. Denies hitting his head, denies losing consciousness. He did take 1000 mg of ibuprofen prior to arrival. He reports severe pain in bilateral elbows as well as pain in his left wrist. States that pain is worse with any movement of them. Related Data Home Medications ?Medication ?Instructions ?Recorded ?Confirmed rosuvastatin 10 mg tablet (Crestor) 10 mg PO HS #90 tabs 04/19/23 04/30/24 Previous Rx's ?Medication ?Instructions ?Recorded rosuvastatin 10 mg tablet (Crestor) 10 mg PO HS #90 tabs 04/19/23 Allergies Allergy/AdvReac Type Severity Reaction Status Date / Time No Known Allergies Allergy Verified 04/30/24 17:09 General Stated Complaint: Orthopedic PAULINA: 3 Exam Narrative Exam Narrative: Review of Systems: All systems reviewed & are unremarkable except as noted in HPI and below Well-developed, no acute distress NCAT RRR Unlabored respiratory effort Nondistended abdomen no focal neurologic deficits Bilateral elbows tender to palpation with decreased range of motion secondary to pain, there is no deformity or effusion appreciated left wrist with dorsal swelling and tenderness, right wrist is not tender. Course Vital Signs Vital signs: Vital Signs Temperature 37.6 C H 04/30/24 17:04 Pulse 86 04/30/24 17:04 Respiratory Rate 20 04/30/24 17:04 Blood Pressure 139/93 H 04/30/24 17:04 Pulse Oximetry 92 04/30/24 17:04 Temperature 37.6 C H 04/30/24 17:04 Pulse 75 04/30/24 19:22 Respiratory Rate 14 04/30/24 19:22 Respiratory Effort Normal, Non-Labored 04/30/24 17:27 Blood Pressure 131/83 04/30/24 19:22 Pulse Oximetry 97 04/30/24 19:22 Oxygen Delivery Method Room Air 04/30/24 17:04 Oxygen Flow Rate 0 04/30/24 17:04 Pain Level 9 04/30/24 17:27 Medical Decision Making Emergent evaluation of traumatic bilateral arm pain. Symptoms seem to be mostly localized in the elbows. Initial concerns for fracture, no evidence of dislocation on physical exam, consider contusion as well. Patient's pain is well-controlled if he is not moving his arms, but I will give a dose of oral pain medication and get imaging of the areas. Imaging of bilateral arms was obtained. I reviewed the images as well as a radiology report. There is concern for fractures in bilateral arms. In the left arm, he does have an impacted fracture of the radial neck as well as fracture of the distal radius. The right arm demonstrates a radial head fracture. Given the bilateral nature of the fractures, I did discuss with orthopedics on-call for recommendations regarding splinting. Dr. Ledesma recommends a removable wrist splint for the left arm. And sling for comfort as needed . Recommends early gentle range of motion for bilateral elbows. The patient was provided with 4 tabs of morphine IR to go home with. He was recommended to continue to take Motrin and Tylenol as needed for pain. A referral was placed for him to follow-up with orthopedic surgery for reevaluation of his injuries and ongoing management. Quality:SDOH Health Related Social Needs: No Data to Display PFSH All Active Problems Closed fracture of head of right radius (Acute) Distal radius fracture, left (Acute) Closed fracture of neck of left radius (Acute) Right shoulder pain (Acute) Screen for colon cancer (Acute) Tinea cruris (Acute) COVID (Acute) June 2022 Atypical pigmented skin lesion (Acute) Personal history of tobacco use (Acute) 2020, occasional use, about 15 pk yr hx Tubular adenoma of colon (Acute) 2019 Osteoarthritis of right hip (Acute) Seborrheic keratoses (Acute) 02/07/16-LEFT TEMPORAL REGION Hyperlipidemia (Acute) Medical History Hepatitis A 2001 - Food poisoning from a restaurant Smoker (06/23/13) Quit 08/2019 Surgical History History of total left knee replacement (TKR) (10/06/19) Hx of colonoscopy (~03/2023) S/P reconstruction of ligament of knee joint Family History Mother Essential hypertension Hyperlipidemia Father , AGE 87 Heart disease Hyperlipidemia Stroke Sister Bladder cancer Maternal Grandfather , AGE 62 Colon cancer Alcohol abuse Paternal Grandfather , AGE 77 Heart disease Myocardial infarction Alcohol abuse Maternal Grandmother , AGE 84 No problems noted. Paternal Grandmother , AGE 85 Diabetes Heart disease Hyperlipidemia Sister Depression Daughter Asthma Daughter No problems noted. Social History Smoking/Tobacco Use Status: Current-Occasional Tobacco Type: cigarettes Tobacco: How many years used: 45 Quit status: considering quitting Second Hand Exposure: Yes Smoking risk assessment performed?: Yes Alcohol Intake: current Alcohol Intake frequency: a few times a week Alcohol type: beer and wine Drug use: Rarely Substance use type: marijuana Caregiver/Support person: No Household members: family and children Housing: house Communication Needs: None Do you need help understanding health information?: Never Pets and animals: Yes Pets and animals: cat(s), dog(s) and farm animals Sexually active: No Do you think of yourself as: straight/heterosexual Current gender identity: male What is your relationship status?: How often do you talk on the phone with friends or family?: three or more times per week How often do you get together with friends or relatives?: three or more times per week How often do you attend scientologist or mormon services?: decline to answer Do you belong to any clubs or organized social groups?: yes Panel score (0-1 are the most socially isolated patients): 2 What type of physical activity do you participate in: other 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
--- NOTE | 2024-05-02 07:34 | NUR.NOTE ---
Accessed Pt chart to obtain the diagnosis and ordering provider for the [facility] paperwork
== END 2024-04-30 19:22 | disposition home or self-care (01) ==
PROVIDERS: Emergency Provider Emergency Medicine; PCP Nurse Practitioner Family
DX: S52.121A Displaced fracture of head of right radius, initial encounter for closed fracture (principal); S52.132A Displaced fracture of neck of left radius, initial encounter for closed fracture; S52.592A Other fractures of lower end of left radius, initial encounter for closed fracture; M25.422 Effusion, left elbow; F17.210 Nicotine dependence, cigarettes, uncomplicated; W17.89XA Other fall from one level to another, initial encounter; Y93.89 Activity, other specified
CPT/HCPCS: 99283; 73080; 73090; 73110

== ENCOUNTER 2024-05-07 15:32 | Outpatient (CLI) | payer BC, SELFPAY ==
--- NOTE | 2024-05-07 15:00 | DI.RAD_ITS ---
Exam(s) XR WRIST LT LIMITED EXAM: XR WRIST LT LIMITED CLINICAL HISTORY: L wrist injury. TECHNIQUE: 2D digital imaging was performed. COMPARISON: CR XR WRIST LT COMPLETE from 04/30/2024 FINDINGS: Two views Very subtle cortical irregularity on the dorsal aspect of distal radius again noted. This may or may not be an actual fracture site. In no significant ulnar variance. Ulnar styloid is intact. Scapho id and scapholunate distance normal. IMPRESSION: Subtle distal radius finding unchanged from previous. May or may not represent a subtle nondisplaced fracture DATA REPOSITORY: RADIATION DOSE DELIVERED:
--- NOTE | 2024-05-07 15:00 | DI.RAD_ITS ---
Exam(s) XR ELBOW RT COMPLETE EXAM: XR ELBOW RT COMPLETE CLINICAL HISTORY: F/U FRACTURE. TECHNIQUE: 2D digital imaging was performed. COMPARISON: CR XR ELBOW RT COMPLETE from 04/30/2024 CR XR FOREARM LT from 04/30/2024 CR XR ELBOW LT COMPLETE from 04/30/2024 FINDINGS: 3 views When compared to images of 1 week ago (04/30/2024) the right radial head fracture site appears stable without further displacement. The size of the step at the radial head fracture site appears slightl y less than previous although this may be due to technical factors. Nevertheless, the fracture line is still quite visible but without significant further displacement. The size of the joint effusion- hemarthrosis has not decreased. No additional fractures identified. Small calcified body is evident in the opposite-medial aspect of the joint between the most medial aspect of the trochlea and the oswald blime tubercle of the proximal ulna coronoid process. This intra-articular calcification measures 2 mm. It was not evident at this location on images of 04/30/2024. IMPRESSION: Stable appearance of the radial head fracture site in the right elbow. There is presently a 1.5-2 mm calcific density in the opposite-medial aspect of the joint, as describ ed above. The size of the elbow joint effusion-hemarthrosis has not decreased. DATA REPOSITORY: RADIATION DOSE DELIVERED:
--- NOTE | 2024-05-07 15:00 | DI.RAD_ITS ---
Exam(s) XR ELBOW LT COMPLETE EXAM: XR ELBOW LT COMPLETE CLINICAL HISTORY: F/U FRACTURE. TECHNIQUE: 2D digital imaging was performed. COMPARISON: CR XR ELBOW LT COMPLETE from 04/30/2024 CR XR ELBOW RT COMPLETE from 05/07/2024 FINDINGS: 3 views Subtle nondisplaced mildly impacted fracture of the radial head-neck junction again noted, appearing unchanged from 1 week ago although the joint effusion has significantly decreased in size. There is also no swelling of the olecranon bursa. No radiopaque foreign bodies. IMPRESSION: Stable appearance of the previously described mild fracture of the radial head-neck junction in the l eft elbow. DATA REPOSITORY: RADIATION DOSE DELIVERED:
== END 2024-05-07 15:33 | disposition home or self-care (01) ==
LOC: DIORS 15:32
PROVIDERS: PCP Nurse Practitioner Family; Visit Provider Physician Assistant
DX: S52.121D Displaced fracture of head of right radius, subsequent encounter for closed fracture with routine healing (principal); S52.132D Displaced fracture of neck of left radius, subsequent encounter for closed fracture with routine healing; X58.XXXD Exposure to other specified factors, subsequent encounter
CPT/HCPCS: 73080; 73100

== ENCOUNTER 2024-05-14 15:47 | Outpatient (CLI) | payer BC, SELFPAY ==
--- NOTE | 2024-05-14 13:21 | DI.RAD_ITS ---
Exam(s) XR ELBOW LT COMPLETE EXAM: XR ELBOW LT COMPLETE CLINICAL HISTORY: LEFT ELBOW INJURY. TECHNIQUE: 2D digital imaging was performed of the left elbow. Three images were obtained. AP, lat eral and oblique views were obtained. COMPARISON: CR XR ELBOW LT COMPLETE from 05/07/2024 FINDINGS: BONES: There has been no change in alignment of the radial head/neck fracture. No new fracture is se en. No bony destructive lesion is seen. JOINTS: The elbow is normally aligned. No change in the joint effusion. SOFT TISSUE: Normal. IMPRESSION: Stable left radial head/neck fracture. DATA REPOSITORY: RADIATION DOSE DELIVERED:
--- NOTE | 2024-05-14 13:21 | DI.RAD_ITS ---
Exam(s) XR ELBOW RT COMPLETE EXAM: XR ELBOW RT COMPLETE CLINICAL HISTORY: RIGHT ELBOW INJURY. TECHNIQUE: 2D digital imaging was performed of the left elbow. Three images were obtained. AP, lat eral and oblique views were obtained. COMPARISON: CR XR ELBOW RT COMPLETE from 05/07/2024 FINDINGS: BONES: There has been no change in alignment of the radial head fracture. No new fractures identifie d. No bony destructive lesion is seen. JOINTS: The elbow is normally aligned. There is a persistent joint effusion. SOFT TISSUE: Normal. IMPRESSION: Stable radial head fracture. DATA REPOSITORY: RADIATION DOSE DELIVERED:
== END 2024-05-14 15:48 | disposition home or self-care (01) ==
LOC: DIORS 15:47
PROVIDERS: PCP Nurse Practitioner Family; Visit Provider Student in an Organized Health Care Education/Training Program
DX: S52.132A Displaced fracture of neck of left radius, initial encounter for closed fracture (principal); S52.121A Displaced fracture of head of right radius, initial encounter for closed fracture; X58.XXXA Exposure to other specified factors, initial encounter
CPT/HCPCS: 73080

== ENCOUNTER 2024-06-11 14:56 | Outpatient (CLI) | payer BC, SELFPAY ==
--- NOTE | 2024-06-11 13:15 | DI.RAD_ITS ---
Exam(s) XR ELBOW RT COMPLETE EXAM: XR ELBOW RT COMPLETE CLINICAL HISTORY: F/U FX. TECHNIQUE: 2D digital imaging was performed. Three views. COMPARISON: CR XR ELBOW RT COMPLETE from 05/14/2024 FINDINGS: BONES: Stable alignment of radial head fracture. No acute fracture is present. No bony destructive l esion is seen. JOINTS: The elbow is normally aligned. A joint effusion is seen. SOFT TISSUE: Normal. IMPRESSION: Stable radial head fracture DATA REPOSITORY: RADIATION DOSE DELIVERED:
--- NOTE | 2024-06-11 13:15 | DI.RAD_ITS ---
Exam(s) XR ELBOW LT COMPLETE EXAM: XR ELBOW LT COMPLETE CLINICAL HISTORY: F/U FX. TECHNIQUE: 2D digital imaging was performed. Three views. COMPARISON: CR XR ELBOW LT COMPLETE from 05/14/2024 FINDINGS: BONES: continued healing of radial head/neck fracture. No visible separation at the articular surfac e. No bony destructive lesion is seen. JOINTS: The elbow is normally aligned. No joint effusion is seen. SOFT TISSUE: Normal. IMPRESSION: Continued healing of radial head fracture DATA REPOSITORY: RADIATION DOSE DELIVERED:
== END 2024-06-11 14:57 | disposition home or self-care (01) ==
LOC: DIORS 14:56
PROVIDERS: PCP Nurse Practitioner Family; Visit Provider Student in an Organized Health Care Education/Training Program
DX: S52.121D Displaced fracture of head of right radius, subsequent encounter for closed fracture with routine healing (principal); S52.132D Displaced fracture of neck of left radius, subsequent encounter for closed fracture with routine healing; X58.XXXD Exposure to other specified factors, subsequent encounter
CPT/HCPCS: 73080

== ENCOUNTER 2024-09-04 00:50 | Outpatient (CLI) | payer MEDICARE, SELFPAY ==
--- NOTE | 2024-09-04 06:30 | DI.MRI_ITS ---
Exam(s) MR UPPER JOINT RT WO EXAM: MR UPPER JOINT RT WO CLINICAL HISTORY: continued pain,closed fx head of rt radius,s52.121a. TECHNIQUE: Multiplanar multisequence MRI was performed. COMPARISON: None. FINDINGS: Elbow joint: A small joint effusion is present. Bones: The radial head fracture is nearly completely healed. There is slight visible step-off at the articular surface. Minimal residual high signal in the marrow. High signal is seen in the marrow o f the coronoid process of the ulna without evidence of discrete fracture. There are mild degenerativ e changes with mild spurring at the coronoid process. Small focus of high signal is noted in the cap itellum. There is no discrete fracture. No visible overlying cartilage defects. Biceps tendon: Intact. No tendinosis. Brachialis tendon: Intact. No tendinosis. Common flexor tendons: Intact. No tendinosis. Common extensor tendons: Intact. No tendinosis. Soft tissues: Unremarkable. IMPRESSION: Radial head fracture shows near complete healing with minimal deformity at the articular surface. Mild edema in the radial head, coronoid process of the ulna and capitellum may represent residual pos ttraumatic edema. No tendon abnormalities. DATA REPOSITORY:
== END 2024-09-04 01:10 ==
PROVIDERS: PCP Nurse Practitioner Family; Visit Provider Student in an Organized Health Care Education/Training Program
DX: S52.121D Displaced fracture of head of right radius, subsequent encounter for closed fracture with routine healing (principal); X58.XXXD Exposure to other specified factors, subsequent encounter
CPT/HCPCS: 73221